=== PATIENT | male | born 1975 | race Caucasian/White ===

== ENCOUNTER 2022-09-23 21:16 | Inpatient (IN) | payer OTHER, SELFPAY ==
[~2022-09-23 21:16] MED LIST: Iopamidol-370 76% 500 ML 1 ML ONE
[2022-09-23] MEDS ORDERED: niCARdipine 25 MG/10 ML VIAL ONE ×2 (21:29→23:51)
[2022-09-23 21:50] LABS: #Basophils 0.1 thou/uL (0.0-0.2); #Lymphocytes 1.5 thou/uL (1.20-3.40); #Monocytes 0.7 thou/uL (0.11-0.59); #Neutrophils 8.3 thou/uL (1.40-6.50); %Basophils 0.6 % (0.0-1.0); %Eosinophils 0.3 % (0.0-10.0); %Lymphocytes 14.3 % (21.0-51.0); %Monocytes 6.8 % (0.0-10.0); %Neutrophils 78.1 % (42.0-75.0); Hemoglobin 14.2 g/dL (14.0-18.0); Mean Corpuscular HGB CONC 34.4 g/dL (32.0-36.0); Mean Corpuscular Hemoglobin 35.4 pg (27.0-31.0); Platelet Count 234 10x3/uL (130-400); RBC Distribution Width 13.1 % (11.5-14.5); Red Blood Cell (RBC) Count 4.02 mill/uL (4.70-6.10); White Blood Cell (WBC) Count 10.6 10x3/uL (4.8-10.8)
[2022-09-23] MEDS ORDERED: Mannitol 12.5 GM/50 ML ONE (21:57)
[2022-09-23] MEDS ORDERED: Dexamethasone 10 MG/ML VIAL ONE (21:57)
[2022-09-23 21:59] LABS: ALT (SGPT) 62 U/L (8-55); AST (SGOT) 75 U/L (5-34); Albumin 4.4 g/dL (3.5-5.0); Alkaline Phosphatase 90 U/L (40-110); Anion Gap 19 mmol/L (10-20); BUN (Urea Nitrogen) 10 mg/dL (8.9-20.6); Bilirubin, Total 0.8 mg/dL (0.2-1.2); Calc. Creatinine Clearance 0 mL/min (70-130); Calcium 9.6 mg/dL (7.8-10.44); Carbon Dioxide 30 mmol/L (22-29); Chloride 92 mmol/L (98-107); Estimated GFR 108; Globulin 3.7 g/dL (2.4-3.5); Glucose 110 mg/dL (70-105); INR-International Normal Ratio 0.9; PTT 26.9 sec (22.9-36.1); Potassium 2.7 mmol/L (3.5-5.1); Protein, Total 8.1 g/dL (6.0-8.3); Sodium 138 mmol/L (136-145)
[2022-09-23] MEDS ORDERED: manNITOL 20% 500 ML ONE (21:59)
[2022-09-23 22:10] LABS: Acetaminophen Less than 10.0 mcg/mL (10.0-30.0); Alcohol Less than 10 mg/dL (Less than 10); CK (CPK) 135 U/L (30-200); Salicylate Less than 8.0 mg/dL (15.0-30.0)
[2022-09-23] MEDS ORDERED: Multivitamins, Adult 10 ML, Thiamine HCl 100 MG, Folic Acid 1 MG in Dextrose 5 %-0.45 %... IV SCH (22:30)
[2022-09-23] MEDS ORDERED: Potassium Chloride 20 MEQ/100 ML PREMIX BAG ONE (22:56)
[2022-09-23] MEDS ORDERED: Ondansetron PF 4 MG/2 ML Vial IVP PRN (23:28)
[2022-09-23] MEDS ORDERED: Ondansetron ODT 4 MG TAB PO PRN (23:28)
[2022-09-23] MEDS ORDERED: Labetalol HCl 100 MG/20 ML VIAL SLOW IVP PRN (23:28)
[2022-09-23] MEDS ORDERED: niCARdipine 25 MG in Sodium Chloride 0.9% 250 ML 250 ML IVPB PRN (23:28)
[2022-09-23] MEDS ORDERED: Acetaminophen 325 MG TAB PO PRN (23:28)
[2022-09-23] MEDS ORDERED: Acetaminophen 650 MG Suppository PR PRN (23:28)
[2022-09-23] MEDS ORDERED: Pantoprazole 40 MG VIAL IVP SCH (23:45)
[2022-09-23 23:50] LABS: Bilirubin Negative (Negative); Blood, Urine Negative (Negative); Clarity Clear (Clear); Glucose, Urine (Dipstick) Normal (Negative); Ketone, Urine Negative (Negative); Leukocyte Negative Leu/uL (Negative); Nitrite Negative (Negative); Protein, Urine (Dipstick) Negative (Neg-Trace); Specific Gravity, Urine 1.009 (1.002-1.036); Urobilinogen Normal mg/dL (Less than 2)
[2022-09-23 23:58] LABS: Amphetamine Not Detected (NotDetected); Barbiturates Screen Not Detected (NotDetected); Benzodiazepine Screen Not Detected (NotDetected); Cocaine Metabolite Screen Not Detected (NotDetected); Methadone Not Detected (NotDetected); Methamphetamine Not Detected (NotDetected); Opiate Screen Not Detected (NotDetected); Oxycodone Screen Not Detected (NotDetected); Phencyclidine (PCP) Not Detected (NotDetected); THC/Cannabinoid Screen Not Detected (NotDetected); Tricyclic Screen Not Detected (NotDetected)
[2022-09-24 00:09] LABS: SARS-CoV-2 NAA Rapid Test Not Detected (NotDetected)
[2022-09-24] MEDS ORDERED: Electrolyte Replacement Protocol 1 EACH FS ONE (01:17)
[2022-09-24] MEDS ORDERED: Thiamine HCl 200 MG/2 ML VIAL SLOW IVP SCH (01:30)
[2022-09-24] MEDS ORDERED: Electrolyte Replacement Protocol FS PRN (01:30)
[2022-09-24] MEDS ORDERED: Labetalol HCl 100 MG/20 ML VIAL SLOW IVP PRN (01:38)
[2022-09-24 01:47] VITALS: BMI 22.8
[2022-09-24 02:32] LABS: #Lymphocytes 0.4 thou/uL (1.20-3.40); #Monocytes 0.1 thou/uL (0.11-0.59); #Neutrophils 7.6 thou/uL (1.40-6.50); Hemoglobin 14.9 g/dL (14.0-18.0); Mean Corpuscular HGB CONC 35.9 g/dL (32.0-36.0); Mean Corpuscular Hemoglobin 36.4 pg (27.0-31.0); Mean Platelet Volume 6.8 fL (7.4-10.4); Platelet Count 212 10x3/uL (130-400); RBC Distribution Width 13.2 % (11.5-14.5); Red Blood Cell (RBC) Count 4.09 mill/uL (4.70-6.10); White Blood Cell (WBC) Count 8.1 10x3/uL (4.8-10.8)
[2022-09-24 02:57] LABS: Troponin I Less than 0.010 ng/mL (< 0.028)
[2022-09-24] MEDS: Potassium Chloride 20 MEQ in Premix Bag 1 BAG IVPB SCH ×2 (03:25→06:37)
[2022-09-24 03:28] LABS: Hemoglobin A1c 4.8 % (4.0-6.0)
[2022-09-24 03:31] LABS: Anion Gap 15 mmol/L (10-20); BUN (Urea Nitrogen) 8 mg/dL (8.9-20.6); Calc. Creatinine Clearance 104 mL/min (70-130); Calcium 9.6 mg/dL (7.8-10.44); Carbon Dioxide 26 mmol/L (22-29); Chloride 95 mmol/L (98-107); Cholesterol 187 mg/dl (< 200 Desired); Estimated GFR 109; Glucose 277 mg/dL (70-105); HDL Cholesterol 93 mg/dL (>60 Neg Risk); LDL Cholesterol, Calculated 86 mg/dL; Magnesium 1.9 mg/dL (1.6-2.6); Sodium 133 mmol/L (136-145); Triglycerides 40 mg/dL (Less than 150)
[2022-09-24 03:32] LABS: Phosphorus Less than 1.0 mg/dL (2.3-4.7)
[2022-09-24] MEDS ORDERED: Potassium Phosphate 30 MMOL in Sodium Chloride 0.9% 250 ML 250 ML IVPB SCH (04:00)
[2022-09-24] MEDS: niCARdipine 25 MG in Sodium Chloride 0.9% 250 ML 250 ML IVPB PRN ×2 (04:35→18:00)
[2022-09-24] MEDS: Dexamethasone 4 MG TAB PO SCH ×3 (04:48→18:01)
[2022-09-24 06:28] LABS: Troponin I Less than 0.010 ng/mL (< 0.028)
[2022-09-24] MEDS ORDERED: Magnesium 2 GM/50 ML(in water) 2 GM in Premix Bag 1 BAG IVPB SCH (08:00)
[2022-09-24] MEDS: Pantoprazole 40 MG VIAL IVP SCH (08:59)
[2022-09-24] MEDS ORDERED: Thiamine 100 MG TAB PO SCH (09:00)
[2022-09-24] MEDS: Folic Acid 1 MG TAB PO SCH (09:02)
[2022-09-24] MEDS: ALPRAZolam 0.25 MG TAB PO PRN ×2 (09:03→16:54)
[2022-09-24] MEDS: Thiamine HCl 200 MG/2 ML VIAL SLOW IVP SCH (09:03)
[2022-09-24] MEDS ORDERED: Losartan 25 MG TAB PO SCH (14:45)
[2022-09-24 16:17] LABS: Magnesium 2.3 mg/dL (1.6-2.6); Phosphorus 3.3 mg/dL (2.3-4.7); Potassium 3.5 mmol/L (3.5-5.1)
[2022-09-24] MEDS: tiZANidine HCl 4 MG TAB PO PRN (19:54)
[2022-09-25] MEDS: Dexamethasone 4 MG TAB PO SCH ×5 (00:32→23:13)
[2022-09-25] MEDS: ALPRAZolam 0.25 MG TAB PO PRN ×2 (02:54→17:19)
[2022-09-25 04:40] LABS: #Lymphocytes 0.5 thou/uL (1.20-3.40); #Monocytes 0.3 thou/uL (0.11-0.59); %Eosinophils 0.2 % (0.0-10.0); %Lymphocytes 4.5 % (21.0-51.0); %Monocytes 2.9 % (0.0-10.0); %Neutrophils 92.4 % (42.0-75.0); Hemoglobin 13.6 g/dL (14.0-18.0); Mean Corpuscular HGB CONC 34.7 g/dL (32.0-36.0); Mean Corpuscular Hemoglobin 36.1 pg (27.0-31.0); Mean Platelet Volume 7.1 fL (7.4-10.4); Platelet Count 239 10x3/uL (130-400); RBC Distribution Width 13.2 % (11.5-14.5); Red Blood Cell (RBC) Count 3.76 mill/uL (4.70-6.10); White Blood Cell (WBC) Count 10.8 10x3/uL (4.8-10.8)
[2022-09-25 05:29] LABS: Anion Gap 13 mmol/L (10-20); BUN (Urea Nitrogen) 16 mg/dL (8.9-20.6); Calc. Creatinine Clearance 108 mL/min (70-130); Calcium 9.4 mg/dL (7.8-10.44); Carbon Dioxide 23 mmol/L (22-29); Chloride 103 mmol/L (98-107); Estimated GFR 110; Glucose 138 mg/dL (70-105); Magnesium 2.2 mg/dL (1.6-2.6); Phosphorus 4.4 mg/dL (2.3-4.7); Potassium 3.5 mmol/L (3.5-5.1); Sodium 135 mmol/L (136-145)
[2022-09-25] MEDS ORDERED: Potassium Chloride 20 MEQ TAB PO SCH (08:00)
[2022-09-25] MEDS: Pantoprazole 40 MG VIAL IVP SCH (08:34)
[2022-09-25] MEDS: Thiamine HCl 200 MG/2 ML VIAL SLOW IVP SCH (08:35)
[2022-09-25] MEDS: Folic Acid 1 MG TAB PO SCH (08:35)
[2022-09-25] MEDS ORDERED: Thiamine HCl 200 MG/2 ML VIAL SLOW IVP SCH (09:00)
[2022-09-25] MEDS ORDERED: Losartan 25 MG TAB PO SCH ×3 (09:00→21:00)
[2022-09-25] MEDS ORDERED: Calcium Carbonate 500 MG ChewTAB PO PRN (10:43)
[2022-09-25] MEDS: hydrALAZINE 20 MG/ML VIAL SLOW IVP PRN (16:45)
[2022-09-25] MEDS: tiZANidine HCl 4 MG TAB PO PRN (20:00)
[2022-09-26] MEDS: ALPRAZolam 0.25 MG TAB PO PRN ×2 (00:40→16:47)
[2022-09-26 05:13] LABS: #Lymphocytes 0.8 thou/uL (1.20-3.40); #Monocytes 0.9 thou/uL (0.11-0.59); #Neutrophils 13.2 thou/uL (1.40-6.50); %Basophils 0.1 % (0.0-1.0); %Eosinophils 0.1 % (0.0-10.0); %Monocytes 6.2 % (0.0-10.0); %Neutrophils 88.6 % (42.0-75.0); Hemoglobin 13.5 g/dL (14.0-18.0); Mean Corpuscular HGB CONC 35.1 g/dL (32.0-36.0); Mean Corpuscular Hemoglobin 36.5 pg (27.0-31.0); Mean Platelet Volume 7.2 fL (7.4-10.4); Platelet Count 219 10x3/uL (130-400); RBC Distribution Width 13.3 % (11.5-14.5); Red Blood Cell (RBC) Count 3.71 mill/uL (4.70-6.10); White Blood Cell (WBC) Count 14.9 10x3/uL (4.8-10.8)
[2022-09-26 05:38] LABS: Anion Gap 14 mmol/L (10-20); BUN (Urea Nitrogen) 20 mg/dL (8.9-20.6); Calc. Creatinine Clearance 110 mL/min (70-130); Calcium 9.2 mg/dL (7.8-10.44); Carbon Dioxide 24 mmol/L (22-29); Chloride 97 mmol/L (98-107); Estimated GFR 108; Glucose 154 mg/dL (70-105); Magnesium 2.1 mg/dL (1.6-2.6); Potassium 3.4 mmol/L (3.5-5.1); Sodium 132 mmol/L (136-145)
[2022-09-26] MEDS: Dexamethasone 4 MG TAB PO SCH ×3 (06:48→16:47)
[2022-09-26] MEDS ORDERED: Potassium Chloride 20 MEQ TAB PO SCH ×2 (08:00→13:00)
[2022-09-26] MEDS: Losartan 25 MG TAB PO SCH (09:26)
[2022-09-26] MEDS: Folic Acid 1 MG TAB PO SCH (09:26)
[2022-09-26] MEDS: Thiamine HCl 200 MG/2 ML VIAL SLOW IVP SCH (09:27)
[2022-09-26] MEDS: Pantoprazole 40 MG VIAL IVP SCH (09:27)
[2022-09-26 12:30] LABS: Potassium 3.5 mmol/L (3.5-5.1)
[2022-09-26] MEDS: tiZANidine HCl 4 MG TAB PO PRN (20:58)
[2022-09-27] MEDS: Dexamethasone 4 MG TAB PO SCH ×5 (00:33→22:28)
[2022-09-27] MEDS: ALPRAZolam 0.25 MG TAB PO PRN (02:13)
[2022-09-27 05:09] LABS: #Lymphocytes 0.7 thou/uL (1.20-3.40); #Monocytes 1.1 thou/uL (0.11-0.59); #Neutrophils 10.6 thou/uL (1.40-6.50); %Lymphocytes 5.7 % (21.0-51.0); %Monocytes 8.6 % (0.0-10.0); %Neutrophils 85.7 % (42.0-75.0); Mean Corpuscular HGB CONC 35.3 g/dL (32.0-36.0); Mean Corpuscular Hemoglobin 36.2 pg (27.0-31.0); Mean Platelet Volume 7.2 fL (7.4-10.4); Platelet Count 200 10x3/uL (130-400); Red Blood Cell (RBC) Count 3.58 mill/uL (4.70-6.10); White Blood Cell (WBC) Count 12.4 10x3/uL (4.8-10.8)
[2022-09-27 05:33] LABS: Anion Gap 13 mmol/L (10-20); BUN (Urea Nitrogen) 14 mg/dL (8.9-20.6); Calc. Creatinine Clearance 113 mL/min (70-130); Carbon Dioxide 25 mmol/L (22-29); Chloride 99 mmol/L (98-107); Estimated GFR 110; Glucose 129 mg/dL (70-105); Potassium 3.6 mmol/L (3.5-5.1); Sodium 133 mmol/L (136-145)
[2022-09-27] MEDS: Thiamine HCl 200 MG/2 ML VIAL SLOW IVP SCH (09:27)
[2022-09-27] MEDS: Losartan 25 MG TAB PO SCH (09:27)
[2022-09-27] MEDS: Folic Acid 1 MG TAB PO SCH (09:28)
[2022-09-27] MEDS: Pantoprazole 40 MG VIAL IVP SCH (09:28)
[2022-09-27] MEDS ORDERED: Potassium Chloride 20 MEQ TAB PO SCH (12:00)
[2022-09-27] MEDS: hydrALAZINE 20 MG/ML VIAL SLOW IVP PRN (15:43)
[2022-09-27] MEDS ORDERED: Famotidine 20 MG TAB PO SCH (19:45)
[2022-09-27] MEDS: tiZANidine HCl 4 MG TAB PO PRN (22:28)
[2022-09-28] MEDS: ALPRAZolam 0.25 MG TAB PO PRN (01:26)
[2022-09-28] MEDS ORDERED: Morphine 2 MG/ML VIAL SLOW IVP SCH ×2 (02:00→23:15)
[2022-09-28] MEDS: Dexamethasone 4 MG TAB PO SCH ×4 (05:15→23:45)
[2022-09-28] MEDS: Pantoprazole 40 MG VIAL IVP SCH (09:14)
[2022-09-28] MEDS: hydrALAZINE 20 MG/ML VIAL SLOW IVP PRN (09:14)
[2022-09-28] MEDS: Thiamine HCl 200 MG/2 ML VIAL SLOW IVP SCH (09:14)
[2022-09-28] MEDS: Folic Acid 1 MG TAB PO SCH (09:15)
[2022-09-28] MEDS: Losartan 25 MG TAB PO SCH (09:15)
[2022-09-28] MEDS: tiZANidine HCl 4 MG TAB PO PRN ×2 (09:28→16:51)
[2022-09-28] MEDS ORDERED: Gabapentin 300 MG CAP PO SCH ×2 (09:30→21:45)
[2022-09-28] MEDS ORDERED: Acetaminophen 500 MG TAB PO SCH (21:45)
[2022-09-29] MEDS: ALPRAZolam 0.25 MG TAB PO PRN ×3 (01:58→20:54)
[2022-09-29] MEDS: tiZANidine HCl 4 MG TAB PO PRN ×4 (01:58→20:54)
[2022-09-29] MEDS: Folic Acid 1 MG TAB PO SCH (08:23)
[2022-09-29] MEDS: Dexamethasone 4 MG TAB PO SCH ×2 (08:23→18:02)
[2022-09-29] MEDS: Gabapentin 100 MG CAP PO SCH ×3 (08:24→20:53)
[2022-09-29] MEDS: Losartan 25 MG TAB PO SCH (08:24)
[2022-09-29] MEDS: Thiamine HCl 200 MG/2 ML VIAL SLOW IVP SCH (08:25)
[2022-09-29] MEDS: Pantoprazole 40 MG VIAL IVP SCH (08:25)
[2022-09-29 16:58] VITALS: BP 109/64; TEMP 97.7
== END 2022-09-29 21:30 | disposition short-term general hospital (02) | DRG 64 ==
LOC: ERS 21:16 → CCU 22:01 → 2NO 09-25 20:14
PROVIDERS: ADMIT Student in an Organized Health Care Education/Training Program; ATTEND Internal Medicine
DX: I61.8 Other nontraumatic intracerebral hemorrhage (principal); G93.6 Cerebral edema; G81.94 Hemiplegia, unspecified affecting left nondominant side; I16.1 Hypertensive emergency; Z20.822 Contact with and (suspected) exposure to COVID-19; I10 Essential (primary) hypertension; F32.A Depression, unspecified; E87.6 Hypokalemia; R29.810 Facial weakness; R29.710 NIHSS score 10; Z91.14 Patient's other noncompliance with medication regimen; Z79.899 Other long term (current) drug therapy
CPT/HCPCS: 36415; 36416; 70450; 70496; 71045; 74230; 80048; 80053; 80061; 80306; 80307; 81003; 82550; 83036; 83605; 83735; 84100; 84443; 84484; 85025; 85610; 85730; 93005; 93306; 96365; 96366; 96368; 96375; C9113; J0360; J1100; J2150; J2272; J3411; J3475; J3480; J7042; J7050; J7799; J8540; Q9967; U0002

== ENCOUNTER 2022-10-05 20:39 | Inpatient (IN) | payer OTHER ==
[2022-10-05 21:03] LABS: #Eosinphils 0.2 thou/uL (0.0-0.7); #Lymphocytes 1.5 thou/uL (1.20-3.40); #Monocytes 1.6 thou/uL (0.11-0.59); #Neutrophils 11.7 thou/uL (1.40-6.50); %Basophils 0.3 % (0.0-1.0); %Eosinophils 1.5 % (0.0-10.0); %Monocytes 10.4 % (0.0-10.0); %Neutrophils 77.8 % (42.0-75.0); Hemoglobin 14.3 g/dL (14.0-18.0); Mean Corpuscular HGB CONC 35.4 g/dL (32.0-36.0); Mean Corpuscular Hemoglobin 36.6 pg (27.0-31.0); Mean Platelet Volume 5.5 fL (7.4-10.4); Platelet Count 530 10x3/uL (130-400); RBC Distribution Width 13.6 % (11.5-14.5)
[2022-10-05] MEDS ORDERED: Morphine 4 MG/ML VIAL ONE (21:17)
[2022-10-05] MEDS ORDERED: Ondansetron PF 4 MG/2 ML Vial ONE (21:17)
[2022-10-05 21:26] LABS: ALT (SGPT) 86 U/L (8-55); AST (SGOT) 51 U/L (5-34); Albumin 3.3 g/dL (3.5-5.0); Alkaline Phosphatase 309 U/L (40-110); Anion Gap 14 mmol/L (10-20); BUN (Urea Nitrogen) 17 mg/dL (8.9-20.6); Bilirubin, Total 0.8 mg/dL (0.2-1.2); Calc. Creatinine Clearance 0 mL/min (70-130); Carbon Dioxide 20 mmol/L (22-29); Chloride 98 mmol/L (98-107); Estimated GFR 114; Globulin 4.3 g/dL (2.4-3.5); Glucose 91 mg/dL (70-105); Lipase 11 U/L (8-78); Potassium 4.9 mmol/L (3.5-5.1); Protein, Total 7.6 g/dL (6.0-8.3); Sodium 127 mmol/L (136-145)
[2022-10-05] MEDS ORDERED: metroNIDAZOLE 500 MG/100 ML BAG ONE (22:11)
[2022-10-05 23:42] VITALS: BMI 23.1
[2022-10-05] MEDS ORDERED: Sodium Chloride 0.9% 1,000 ML IV SCH (23:45)
[2022-10-05] MEDS ORDERED: Ondansetron ODT 4 MG TAB SL PRN (23:45)
[2022-10-05] MEDS ORDERED: Ondansetron PF 4 MG/2 ML Vial IVP PRN (23:45)
[2022-10-05] MEDS ORDERED: Morphine 2 MG/ML VIAL SLOW IVP PRN (23:55)
[2022-10-06] MEDS: Zolpidem Tartrate 5 MG TAB PO PRN ×2 (01:02→22:11)
[2022-10-06] MEDS: metroNIDAZOLE 500 MG in Premix Bag 1 BAG IVPB SCH ×2 (05:16→13:58)
[2022-10-06] MEDS: Acetaminophen 325 MG TAB PO PRN ×3 (05:17→21:01)
[2022-10-06 05:27] LABS: #Eosinphils 0.2 thou/uL (0.0-0.7); #Lymphocytes 1.7 thou/uL (1.20-3.40); #Monocytes 1.3 thou/uL (0.11-0.59); #Neutrophils 7.9 thou/uL (1.40-6.50); %Basophils 0.4 % (0.0-1.0); %Eosinophils 1.9 % (0.0-10.0); %Lymphocytes 15.1 % (21.0-51.0); %Monocytes 11.7 % (0.0-10.0); %Neutrophils 70.9 % (42.0-75.0); Hemoglobin 13.1 g/dL (14.0-18.0); Mean Corpuscular HGB CONC 34.7 g/dL (32.0-36.0); Mean Corpuscular Hemoglobin 36.6 pg (27.0-31.0); Mean Platelet Volume 5.7 fL (7.4-10.4); Platelet Count 511 10x3/uL (130-400); RBC Distribution Width 13.5 % (11.5-14.5); Red Blood Cell (RBC) Count 3.59 mill/uL (4.70-6.10); White Blood Cell (WBC) Count 11.2 10x3/uL (4.8-10.8)
[2022-10-06 05:47] LABS: ALT (SGPT) 70 U/L (8-55); AST (SGOT) 32 U/L (5-34); Albumin 3.1 g/dL (3.5-5.0); Alkaline Phosphatase 266 U/L (40-110); Anion Gap 14 mmol/L (10-20); BUN (Urea Nitrogen) 15 mg/dL (8.9-20.6); Bilirubin, Total 0.9 mg/dL (0.2-1.2); Calc. Creatinine Clearance 117 mL/min (70-130); Calcium 8.9 mg/dL (7.8-10.44); Carbon Dioxide 23 mmol/L (22-29); Chloride 98 mmol/L (98-107); Estimated GFR 112; Globulin 3.9 g/dL (2.4-3.5); Glucose 90 mg/dL (70-105); Potassium 4.3 mmol/L (3.5-5.1); Sodium 131 mmol/L (136-145)
[2022-10-06] MEDS: Multivitamin W/ Minerals 1 TAB PO SCH (08:02)
[2022-10-06] MEDS: Escitalopram Oxalate 10 mg Tablet PO SCH (08:02)
[2022-10-06] MEDS: Thiamine 100 MG TAB PO SCH (08:02)
[2022-10-06] MEDS: Losartan 25 MG TAB PO SCH (08:03)
[2022-10-06] MEDS: Gabapentin 100 MG CAP PO SCH ×3 (08:03→21:02)
[2022-10-06] MEDS: Folic Acid 1 MG TAB PO SCH (08:03)
[2022-10-06] MEDS: hydrOXYzine 25 MG TAB PO PRN ×2 (11:09→21:02)
[2022-10-06] MEDS ORDERED: Iopamidol-370 76% 500 ML 1 ML ONE (13:57)
[2022-10-06 14:19] LABS: Hemoglobin 13.4 g/dL (14.0-18.0); Mean Corpuscular HGB CONC 34.4 g/dL (32.0-36.0); Mean Corpuscular Hemoglobin 35.4 pg (27.0-31.0); Mean Platelet Volume 5.7 fL (7.4-10.4); Platelet Count 455 10x3/uL (130-400); RBC Distribution Width 13.6 % (11.5-14.5); Red Blood Cell (RBC) Count 3.79 mill/uL (4.70-6.10)
[2022-10-06 14:46] LABS: Band 50 % (5-11); Lymphocytes 2 % (21-51); MDiff Complete? YES; Macrocytosis SLIGHT = 6-15 cells (100X) (0-5/hpf); Metamyelocyte 2 % (0-0); Monocytes 1 % (0-10); Neutrophil 45 % (42-75); Platelet Morphology Comment Appears Increased; Polychromasia SLIGHT = 2-3 cells (100X) (0-2/hpf); Toxic Granulation SLIGHT; Vacuoles SLIGHT
[2022-10-06] MEDS ORDERED: Meropenem 1 GM in Sodium Chloride 0.9% 100 ML IVPB SCH ×2 (14:47→15:15)
[2022-10-06] MEDS ORDERED: VANCOMYCIN 1.25 GM/250 ML BAG IVPB SCH (14:48)
[2022-10-06] MEDS ORDERED: VANCOMYCIN 1.75 GM/500 ML BAG 1.75 GM in Premix Bag 1 BAG IVPB SCH (18:00)
[2022-10-06 20:54] LABS: INR-International Normal Ratio 1.1; PTT 30.6 sec (22.9-36.1); Prothrombin Time 15.1 sec (12.0-14.7)
[2022-10-06] MEDS: Meropenem 1 GM in Sodium Chloride 0.9% 100 ML IVPB SCH (21:12)
[2022-10-07] MEDS: Acetaminophen 325 MG TAB PO PRN ×5 (03:58→22:29)
[2022-10-07] MEDS: Meropenem 1 GM in Sodium Chloride 0.9% 100 ML IVPB SCH ×3 (05:51→22:29)
[2022-10-07] MEDS: VANCOMYCIN 1.25 GM/250 ML BAG 1.25 GM in Premix Bag 1 BAG IVPB SCH ×2 (05:51→18:08)
[2022-10-07 06:11] LABS: ALT (SGPT) 71 U/L (8-55); AST (SGOT) 47 U/L (5-34); Albumin 3.1 g/dL (3.5-5.0); Alkaline Phosphatase 339 U/L (40-110); Anion Gap 15 mmol/L (10-20); BUN (Urea Nitrogen) 17 mg/dL (8.9-20.6); Bilirubin, Total 0.8 mg/dL (0.2-1.2); Calc. Creatinine Clearance 112 mL/min (70-130); Carbon Dioxide 19 mmol/L (22-29); Chloride 101 mmol/L (98-107); Estimated GFR 111; Glucose 95 mg/dL (70-105); Potassium 4.2 mmol/L (3.5-5.1); Protein, Total 7.1 g/dL (6.0-8.3); Sodium 131 mmol/L (136-145)
[2022-10-07 06:43] LABS: Band 3 % (5-11); Hemoglobin 13.4 g/dL (14.0-18.0); Lymphocytes 3 % (21-51); MDiff Complete? YES; Mean Corpuscular HGB CONC 34.2 g/dL (32.0-36.0); Mean Corpuscular Hemoglobin 35.4 pg (27.0-31.0); Mean Platelet Volume 5.7 fL (7.4-10.4); Metamyelocyte 1 % (0-0); Monocytes 3 % (0-10); Neutrophil 90 % (42-75); Platelet Count 415 10x3/uL (130-400); Platelet Morphology Comment Appears Increased; Polychromasia SLIGHT = 2-3 cells (100X) (0-2/hpf); RBC Distribution Width 13.7 % (11.5-14.5); Red Blood Cell (RBC) Count 3.79 mill/uL (4.70-6.10); White Blood Cell (WBC) Count 18.9 10x3/uL (4.8-10.8)
[2022-10-07] MEDS: Escitalopram Oxalate 10 mg Tablet PO SCH (08:12)
[2022-10-07] MEDS: Folic Acid 1 MG TAB PO SCH (08:12)
[2022-10-07] MEDS: Gabapentin 100 MG CAP PO SCH ×3 (08:12→19:51)
[2022-10-07] MEDS: Multivitamin W/ Minerals 1 TAB PO SCH (08:12)
[2022-10-07] MEDS: Thiamine 100 MG TAB PO SCH (08:12)
[2022-10-07] MEDS: Losartan 25 MG TAB PO SCH (08:12)
[2022-10-07] MEDS ORDERED: Lidocaine 1% PF 5 ML VIAL ONE (09:26)
[2022-10-07] MEDS ORDERED: Sodium Bicarbonate 2.5 MEQ/5 ML VIAL ONE (09:26)
[2022-10-07] MEDS: hydrOXYzine 25 MG TAB PO PRN (18:28)
[2022-10-07 18:38] LABS: #Eosinphils 0.1 thou/uL (0.0-0.7); #Monocytes 1.4 thou/uL (0.11-0.59); #Neutrophils 13.4 thou/uL (1.40-6.50); %Basophils 0.3 % (0.0-1.0); %Eosinophils 0.6 % (0.0-10.0); %Lymphocytes 6.1 % (21.0-51.0); %Monocytes 8.9 % (0.0-10.0); %Neutrophils 84.2 % (42.0-75.0); Hemoglobin 13.9 g/dL (14.0-18.0); Mean Corpuscular HGB CONC 34.8 g/dL (32.0-36.0); Mean Corpuscular Hemoglobin 36.6 pg (27.0-31.0); Mean Platelet Volume 5.7 fL (7.4-10.4); Platelet Count 445 10x3/uL (130-400); RBC Distribution Width 13.7 % (11.5-14.5); Red Blood Cell (RBC) Count 3.79 mill/uL (4.70-6.10); White Blood Cell (WBC) Count 15.9 10x3/uL (4.8-10.8)
[2022-10-07 18:52] LABS: Anion Gap 18 mmol/L (10-20); BUN (Urea Nitrogen) 18 mg/dL (8.9-20.6); Calc. Creatinine Clearance 127 mL/min (70-130); Carbon Dioxide 17 mmol/L (22-29); Chloride 101 mmol/L (98-107); Estimated GFR 115; Glucose 86 mg/dL (70-105); Potassium 4.4 mmol/L (3.5-5.1); Sodium 132 mmol/L (136-145)
[2022-10-07] MEDS: Zolpidem Tartrate 5 MG TAB PO PRN (19:52)
[2022-10-08] MEDS: hydrOXYzine 25 MG TAB PO PRN (01:50)
[2022-10-08] MEDS: Acetaminophen 325 MG TAB PO PRN ×3 (04:07→20:22)
[2022-10-08 05:26] LABS: #Eosinphils 0.2 thou/uL (0.0-0.7); #Lymphocytes 1.6 thou/uL (1.20-3.40); #Monocytes 1.6 thou/uL (0.11-0.59); #Neutrophils 11.1 thou/uL (1.40-6.50); %Basophils 0.3 % (0.0-1.0); %Eosinophils 1.2 % (0.0-10.0); %Lymphocytes 10.8 % (21.0-51.0); %Monocytes 11.1 % (0.0-10.0); %Neutrophils 76.6 % (42.0-75.0); Hemoglobin 12.8 g/dL (14.0-18.0); Mean Corpuscular HGB CONC 33.9 g/dL (32.0-36.0); Mean Corpuscular Hemoglobin 35.2 pg (27.0-31.0); Mean Platelet Volume 5.7 fL (7.4-10.4); Platelet Count 410 10x3/uL (130-400); RBC Distribution Width 13.8 % (11.5-14.5); Red Blood Cell (RBC) Count 3.63 mill/uL (4.70-6.10); White Blood Cell (WBC) Count 14.5 10x3/uL (4.8-10.8)
[2022-10-08 05:43] LABS: Vancomycin, Trough 11.4 ug/mL
[2022-10-08 05:47] LABS: ALT (SGPT) 51 U/L (8-55); AST (SGOT) 27 U/L (5-34); Alkaline Phosphatase 283 U/L (40-110); Anion Gap 18 mmol/L (10-20); BUN (Urea Nitrogen) 17 mg/dL (8.9-20.6); Bilirubin, Total 0.6 mg/dL (0.2-1.2); Calc. Creatinine Clearance 127 mL/min (70-130); Calcium 8.6 mg/dL (7.8-10.44); Carbon Dioxide 16 mmol/L (22-29); Chloride 101 mmol/L (98-107); Estimated GFR 115; Globulin 3.9 g/dL (2.4-3.5); Glucose 90 mg/dL (70-105); Protein, Total 6.9 g/dL (6.0-8.3); Sodium 131 mmol/L (136-145)
[2022-10-08] MEDS: Vancomycin 1 GM in Premix Bag 1 BAG IVPB SCH ×3 (06:23→22:43)
[2022-10-08] MEDS: Meropenem 1 GM in Sodium Chloride 0.9% 100 ML IVPB SCH ×3 (06:23→22:43)
[2022-10-08] MEDS: Thiamine 100 MG TAB PO SCH (08:24)
[2022-10-08] MEDS: Escitalopram Oxalate 10 mg Tablet PO SCH (08:24)
[2022-10-08] MEDS: Folic Acid 1 MG TAB PO SCH (08:24)
[2022-10-08] MEDS: Gabapentin 100 MG CAP PO SCH ×3 (08:24→20:23)
[2022-10-08] MEDS: Losartan 25 MG TAB PO SCH (08:24)
[2022-10-08] MEDS: Multivitamin W/ Minerals 1 TAB PO SCH (08:25)
[2022-10-08] MEDS: HYDROcodone/Acetaminophen 5/325 mg Tablet PO PRN ×4 (10:43→23:11)
[2022-10-08] MEDS ORDERED: Morphine 2 MG/ML VIAL SLOW IVP SCH (10:45)
[2022-10-08] MEDS: Zolpidem Tartrate 5 MG TAB PO PRN (20:23)
[2022-10-08] MEDS: Famotidine 20 MG TAB PO SCH (22:58)
[2022-10-09] MEDS: Acetaminophen 325 MG TAB PO PRN (00:16)
[2022-10-09] MEDS: hydrOXYzine 25 MG TAB PO PRN (03:16)
[2022-10-09] MEDS: HYDROcodone/Acetaminophen 5/325 mg Tablet PO PRN ×5 (04:05→21:53)
[2022-10-09] MEDS: Meropenem 1 GM in Sodium Chloride 0.9% 100 ML IVPB SCH ×3 (05:14→21:53)
[2022-10-09] MEDS: Vancomycin 1 GM in Premix Bag 1 BAG IVPB SCH (05:15)
[2022-10-09 05:48] LABS: Vancomycin, Trough 20.5 ug/mL
[2022-10-09] MEDS: Vancomycin HCl 750 MG in Sodium Chloride 0.9% 250 ML 250 ML IVPB SCH ×2 (06:40→14:26)
[2022-10-09] MEDS: Escitalopram Oxalate 10 mg Tablet PO SCH (08:48)
[2022-10-09] MEDS: Famotidine 20 MG TAB PO SCH ×2 (08:48→21:52)
[2022-10-09] MEDS: Folic Acid 1 MG TAB PO SCH (08:48)
[2022-10-09] MEDS: Gabapentin 100 MG CAP PO SCH ×3 (08:48→21:52)
[2022-10-09] MEDS: Thiamine 100 MG TAB PO SCH (08:49)
[2022-10-09] MEDS: Losartan 25 MG TAB PO SCH (08:49)
[2022-10-09] MEDS: Multivitamin W/ Minerals 1 TAB PO SCH (08:49)
[2022-10-09 09:45] LABS: #Basophils 0.1 thou/uL (0.0-0.2); #Eosinphils 0.2 thou/uL (0.0-0.7); #Lymphocytes 1.5 thou/uL (1.20-3.40); #Monocytes 0.9 thou/uL (0.11-0.59); #Neutrophils 11.1 thou/uL (1.40-6.50); %Basophils 0.4 % (0.0-1.0); %Eosinophils 1.2 % (0.0-10.0); %Lymphocytes 10.9 % (21.0-51.0); %Monocytes 6.2 % (0.0-10.0); %Neutrophils 81.2 % (42.0-75.0); Hemoglobin 13.2 g/dL (14.0-18.0); Mean Corpuscular HGB CONC 33.1 g/dL (32.0-36.0); Mean Corpuscular Hemoglobin 34.6 pg (27.0-31.0); Mean Platelet Volume 5.6 fL (7.4-10.4); Platelet Count 454 10x3/uL (130-400); RBC Distribution Width 13.6 % (11.5-14.5); White Blood Cell (WBC) Count 13.6 10x3/uL (4.8-10.8)
[2022-10-09] MEDS ORDERED: Ketoconazole 2% Cream 15 gm Tube TOP SCH (14:45)
[2022-10-09] MEDS: Nystatin 500,000 UNITS/5 ML UDCUP SSW SCH ×2 (16:46→21:53)
[2022-10-09] MEDS ORDERED: Nystatin 500,000 UNITS/5 ML UDCUP SSW SCH (17:00)
[2022-10-09] MEDS: Zolpidem Tartrate 5 MG TAB PO PRN (23:23)
[2022-10-10] MEDS: hydrOXYzine 25 MG TAB PO PRN ×2 (03:03→22:49)
[2022-10-10] MEDS: HYDROcodone/Acetaminophen 5/325 mg Tablet PO PRN ×2 (05:02→19:37)
[2022-10-10 05:16] LABS: #Eosinphils 0.1 thou/uL (0.0-0.7); #Lymphocytes 1.7 thou/uL (1.20-3.40); #Monocytes 0.9 thou/uL (0.11-0.59); #Neutrophils 11.6 thou/uL (1.40-6.50); %Basophils 0.3 % (0.0-1.0); %Eosinophils 0.7 % (0.0-10.0); %Monocytes 6.2 % (0.0-10.0); %Neutrophils 80.8 % (42.0-75.0); Hemoglobin 13.1 g/dL (14.0-18.0); Mean Corpuscular HGB CONC 33.4 g/dL (32.0-36.0); Mean Corpuscular Hemoglobin 34.5 pg (27.0-31.0); Mean Platelet Volume 5.9 fL (7.4-10.4); Platelet Count 435 10x3/uL (130-400); RBC Distribution Width 13.5 % (11.5-14.5); White Blood Cell (WBC) Count 14.4 10x3/uL (4.8-10.8)
[2022-10-10 05:40] LABS: Anion Gap 15 mmol/L (10-20); BUN (Urea Nitrogen) 12 mg/dL (8.9-20.6); Calc. Creatinine Clearance 132 mL/min (70-130); Calcium 8.7 mg/dL (7.8-10.44); Carbon Dioxide 20 mmol/L (22-29); Chloride 102 mmol/L (98-107); Estimated GFR 116; Glucose 90 mg/dL (70-105); Sodium 133 mmol/L (136-145)
[2022-10-10 05:59] LABS: Hep C IgG Ab Non-Reactive (NonReactive); Hep C Index 0.11 S/CO (0-0.79)
[2022-10-10] MEDS: Losartan 25 MG TAB PO SCH (08:32)
[2022-10-10] MEDS: Gabapentin 100 MG CAP PO SCH ×3 (08:33→22:05)
[2022-10-10] MEDS: Folic Acid 1 MG TAB PO SCH (08:33)
[2022-10-10] MEDS: Famotidine 20 MG TAB PO SCH ×2 (08:34→20:00)
[2022-10-10] MEDS: Nystatin 500,000 UNITS/5 ML UDCUP SSW SCH ×4 (08:34→22:05)
[2022-10-10] MEDS: Thiamine 100 MG TAB PO SCH (08:35)
[2022-10-10] MEDS: Escitalopram Oxalate 10 mg Tablet PO SCH (08:35)
[2022-10-10] MEDS: Ketoconazole 2% Cream 15 gm Tube TOP SCH (08:35)
[2022-10-10] MEDS: Multivitamin W/ Minerals 1 TAB PO SCH (08:35)
[2022-10-10] MEDS ORDERED: Losartan 25 MG TAB PO SCH (09:00)
[2022-10-10] MEDS ORDERED: Iopamidol 370 76% 100 ML VIAL ONE (09:14)
[2022-10-10] MEDS: Meropenem 1 GM in Sodium Chloride 0.9% 100 ML IVPB SCH ×2 (11:23→22:06)
[2022-10-10] MEDS ORDERED: Famotidine 20 MG TAB PO PRN (19:20)
[2022-10-10] MEDS: Zolpidem Tartrate 5 MG TAB PO PRN (22:04)
[2022-10-11] MEDS: Meropenem 1 GM in Sodium Chloride 0.9% 100 ML IVPB SCH (03:28)
[2022-10-11] MEDS: HYDROcodone/Acetaminophen 5/325 mg Tablet PO PRN ×4 (03:28→20:14)
[2022-10-11 05:36] LABS: #Eosinphils 0.2 thou/uL (0.0-0.7); #Lymphocytes 1.9 thou/uL (1.20-3.40); #Monocytes 0.8 thou/uL (0.11-0.59); #Neutrophils 8.2 thou/uL (1.40-6.50); %Basophils 0.4 % (0.0-1.0); %Eosinophils 1.5 % (0.0-10.0); %Monocytes 7.2 % (0.0-10.0); %Neutrophils 73.9 % (42.0-75.0); Hemoglobin 13.5 g/dL (14.0-18.0); Mean Corpuscular HGB CONC 34.5 g/dL (32.0-36.0); Mean Corpuscular Hemoglobin 35.8 pg (27.0-31.0); Mean Platelet Volume 5.7 fL (7.4-10.4); Platelet Count 440 10x3/uL (130-400); RBC Distribution Width 13.4 % (11.5-14.5); Red Blood Cell (RBC) Count 3.76 mill/uL (4.70-6.10); White Blood Cell (WBC) Count 11.2 10x3/uL (4.8-10.8)
[2022-10-11 06:06] LABS: ALT (SGPT) 23 U/L (8-55); AST (SGOT) 19 U/L (5-34); Albumin 2.8 g/dL (3.5-5.0); Alkaline Phosphatase 172 U/L (40-110); Anion Gap 17 mmol/L (10-20); BUN (Urea Nitrogen) 12 mg/dL (8.9-20.6); Bilirubin, Total 0.6 mg/dL (0.2-1.2); Calc. Creatinine Clearance 125 mL/min (70-130); Carbon Dioxide 19 mmol/L (22-29); Chloride 101 mmol/L (98-107); Estimated GFR 114; Glucose 89 mg/dL (70-105); Potassium 4.1 mmol/L (3.5-5.1); Protein, Total 6.8 g/dL (6.0-8.3); Sodium 133 mmol/L (136-145)
[2022-10-11 06:16] LABS: HIV (1/2) Antibody/Antigen Non-Reactive (NonReactive); HIV 1/2 INDEX 0.22 S/CO (<1.00)
[2022-10-11] MEDS: Ketoconazole 2% Cream 15 gm Tube TOP SCH (09:08)
[2022-10-11] MEDS: Multivitamin W/ Minerals 1 TAB PO SCH (09:09)
[2022-10-11] MEDS: Gabapentin 100 MG CAP PO SCH ×3 (09:09→20:13)
[2022-10-11] MEDS: Losartan 25 MG TAB PO SCH (09:09)
[2022-10-11] MEDS: Nystatin 500,000 UNITS/5 ML UDCUP SSW SCH ×4 (09:09→20:12)
[2022-10-11] MEDS: Famotidine 20 MG TAB PO SCH ×2 (09:09→20:16)
[2022-10-11] MEDS: Escitalopram Oxalate 10 mg Tablet PO SCH (09:09)
[2022-10-11] MEDS: Folic Acid 1 MG TAB PO SCH (09:09)
[2022-10-11] MEDS: Thiamine 100 MG TAB PO SCH (09:10)
[2022-10-11] MEDS: metroNIDAZOLE 500 MG TAB PO SCH ×2 (15:54→20:14)
[2022-10-11] MEDS: Ciprofloxacin 500 MG TAB PO SCH (20:13)
[2022-10-11] MEDS: diphenhydrAMINE 30 GM TUBE TOP PRN (21:27)
[2022-10-11] MEDS: Zolpidem Tartrate 5 MG TAB PO PRN (23:04)
[2022-10-12] MEDS: HYDROcodone/Acetaminophen 5/325 mg Tablet PO PRN ×4 (01:35→20:21)
[2022-10-12 05:35] LABS: #Eosinphils 0.2 thou/uL (0.0-0.7); #Lymphocytes 1.9 thou/uL (1.20-3.40); #Monocytes 0.8 thou/uL (0.11-0.59); #Neutrophils 8.2 thou/uL (1.40-6.50); %Basophils 0.4 % (0.0-1.0); %Eosinophils 1.5 % (0.0-10.0); %Lymphocytes 17.3 % (21.0-51.0); %Monocytes 6.9 % (0.0-10.0); Hemoglobin 13.4 g/dL (14.0-18.0); Mean Corpuscular HGB CONC 33.9 g/dL (32.0-36.0); Mean Corpuscular Hemoglobin 35.1 pg (27.0-31.0); Mean Platelet Volume 5.8 fL (7.4-10.4); Platelet Count 446 10x3/uL (130-400); RBC Distribution Width 13.6 % (11.5-14.5); Red Blood Cell (RBC) Count 3.81 mill/uL (4.70-6.10); White Blood Cell (WBC) Count 11.1 10x3/uL (4.8-10.8)
[2022-10-12 05:57] LABS: ALT (SGPT) 22 U/L (8-55); AST (SGOT) 17 U/L (5-34); Albumin 3.1 g/dL (3.5-5.0); Alkaline Phosphatase 162 U/L (40-110); Anion Gap 16 mmol/L (10-20); BUN (Urea Nitrogen) 15 mg/dL (8.9-20.6); Bilirubin, Total 0.5 mg/dL (0.2-1.2); Calc. Creatinine Clearance 122 mL/min (70-130); Carbon Dioxide 22 mmol/L (22-29); Chloride 99 mmol/L (98-107); Estimated GFR 113; Glucose 93 mg/dL (70-105); Protein, Total 7.1 g/dL (6.0-8.3); Sodium 133 mmol/L (136-145)
[2022-10-12] MEDS: Ciprofloxacin 500 MG TAB PO SCH ×2 (06:05→20:21)
[2022-10-12] MEDS: Thiamine 100 MG TAB PO SCH (08:15)
[2022-10-12] MEDS: Gabapentin 100 MG CAP PO SCH ×3 (08:15→20:18)
[2022-10-12] MEDS: Escitalopram Oxalate 10 mg Tablet PO SCH (08:16)
[2022-10-12] MEDS: Multivitamin W/ Minerals 1 TAB PO SCH (08:16)
[2022-10-12] MEDS: Losartan 25 MG TAB PO SCH (08:16)
[2022-10-12] MEDS: Nystatin 500,000 UNITS/5 ML UDCUP SSW SCH ×4 (08:16→20:55)
[2022-10-12] MEDS: metroNIDAZOLE 500 MG TAB PO SCH ×3 (08:16→20:21)
[2022-10-12] MEDS: Folic Acid 1 MG TAB PO SCH (08:16)
[2022-10-12] MEDS: Ketoconazole 2% Cream 15 gm Tube TOP SCH (08:16)
[2022-10-12] MEDS: Famotidine 20 MG TAB PO SCH ×2 (08:22→20:20)
[2022-10-12] MEDS: Saccharomyces boulardii 250 MG CAP PO SCH (08:49)
[2022-10-12] MEDS: Zolpidem Tartrate 5 MG TAB PO PRN (22:44)
[2022-10-12] MEDS: diphenhydrAMINE 30 GM TUBE TOP PRN (22:45)
[2022-10-13 05:43] LABS: #Basophils 0.1 thou/uL (0.0-0.2); #Eosinphils 0.2 thou/uL (0.0-0.7); #Lymphocytes 1.1 thou/uL (1.20-3.40); #Monocytes 0.6 thou/uL (0.11-0.59); #Neutrophils 8.9 thou/uL (1.40-6.50); %Basophils 0.5 % (0.0-1.0); %Eosinophils 1.4 % (0.0-10.0); %Lymphocytes 10.2 % (21.0-51.0); %Monocytes 5.9 % (0.0-10.0); %Neutrophils 81.9 % (42.0-75.0); Hemoglobin 13.6 g/dL (14.0-18.0); Mean Corpuscular HGB CONC 34.7 g/dL (32.0-36.0); Mean Corpuscular Hemoglobin 35.6 pg (27.0-31.0); Mean Platelet Volume 5.8 fL (7.4-10.4); Platelet Count 446 10x3/uL (130-400); RBC Distribution Width 13.6 % (11.5-14.5); Red Blood Cell (RBC) Count 3.81 mill/uL (4.70-6.10); White Blood Cell (WBC) Count 10.8 10x3/uL (4.8-10.8)
[2022-10-13 05:58] LABS: Anion Gap 14 mmol/L (10-20); BUN (Urea Nitrogen) 16 mg/dL (8.9-20.6); Calc. Creatinine Clearance 108 mL/min (70-130); Calcium 9.1 mg/dL (7.8-10.44); Carbon Dioxide 26 mmol/L (22-29); Chloride 98 mmol/L (98-107); Estimated GFR 109; Glucose 125 mg/dL (70-105); Potassium 3.9 mmol/L (3.5-5.1); Sodium 134 mmol/L (136-145)
[2022-10-13] MEDS: Ciprofloxacin 500 MG TAB PO SCH ×2 (06:03→20:20)
[2022-10-13] MEDS: HYDROcodone/Acetaminophen 5/325 mg Tablet PO PRN ×3 (06:36→19:14)
[2022-10-13] MEDS: Multivitamin W/ Minerals 1 TAB PO SCH (08:54)
[2022-10-13] MEDS: Losartan 25 MG TAB PO SCH (08:55)
[2022-10-13] MEDS: Ketoconazole 2% Cream 15 gm Tube TOP SCH (08:55)
[2022-10-13] MEDS: metroNIDAZOLE 500 MG TAB PO SCH ×3 (08:55→20:20)
[2022-10-13] MEDS: Escitalopram Oxalate 10 mg Tablet PO SCH (08:55)
[2022-10-13] MEDS: Gabapentin 100 MG CAP PO SCH ×3 (08:55→20:20)
[2022-10-13] MEDS: Folic Acid 1 MG TAB PO SCH (08:55)
[2022-10-13] MEDS: Saccharomyces boulardii 250 MG CAP PO SCH (08:56)
[2022-10-13] MEDS: Nystatin 500,000 UNITS/5 ML UDCUP SSW SCH ×4 (08:56→20:32)
[2022-10-13] MEDS: Thiamine 100 MG TAB PO SCH (08:56)
[2022-10-13] MEDS: Famotidine 20 MG TAB PO SCH ×2 (08:56→20:21)
[2022-10-13] MEDS: hydrOXYzine 25 MG TAB PO PRN (10:34)
[2022-10-13] MEDS ORDERED: Bisacodyl 10 MG SUPP PR SCH (10:39)
[2022-10-13] MEDS ORDERED: Morphine 2 MG/ML VIAL SLOW IVP SCH (21:45)
[2022-10-13] MEDS ORDERED: HYDROcodone/Acetaminophen 5/325 mg Tablet PO SCH (22:15)
[2022-10-14] MEDS: Zolpidem Tartrate 5 MG TAB PO PRN ×2 (00:17→22:50)
[2022-10-14] MEDS: Ciprofloxacin 500 MG TAB PO SCH ×2 (05:52→20:04)
[2022-10-14 06:11] LABS: #Basophils 0.1 thou/uL (0.0-0.2); #Eosinphils 0.2 thou/uL (0.0-0.7); #Lymphocytes 1.7 thou/uL (1.20-3.40); #Neutrophils 8.6 thou/uL (1.40-6.50); %Basophils 0.5 % (0.0-1.0); %Eosinophils 2.1 % (0.0-10.0); %Lymphocytes 14.7 % (21.0-51.0); %Monocytes 8.8 % (0.0-10.0); %Neutrophils 73.8 % (42.0-75.0); Hemoglobin 13.4 g/dL (14.0-18.0); Mean Corpuscular HGB CONC 33.5 g/dL (32.0-36.0); Mean Platelet Volume 5.8 fL (7.4-10.4); Platelet Count 534 10x3/uL (130-400); RBC Distribution Width 13.7 % (11.5-14.5); Red Blood Cell (RBC) Count 3.83 mill/uL (4.70-6.10); White Blood Cell (WBC) Count 11.6 10x3/uL (4.8-10.8)
[2022-10-14 06:46] LABS: Anion Gap 16 mmol/L (10-20); BUN (Urea Nitrogen) 19 mg/dL (8.9-20.6); Calc. Creatinine Clearance 107 mL/min (70-130); Carbon Dioxide 23 mmol/L (22-29); Chloride 100 mmol/L (98-107); Estimated GFR 109; Glucose 102 mg/dL (70-105); Potassium 4.3 mmol/L (3.5-5.1); Sodium 135 mmol/L (136-145)
[2022-10-14] MEDS: Escitalopram Oxalate 10 mg Tablet PO SCH (08:07)
[2022-10-14] MEDS: Saccharomyces boulardii 250 MG CAP PO SCH (08:07)
[2022-10-14] MEDS: Nystatin 500,000 UNITS/5 ML UDCUP SSW SCH ×4 (08:07→20:04)
[2022-10-14] MEDS: Folic Acid 1 MG TAB PO SCH (08:07)
[2022-10-14] MEDS: Losartan 25 MG TAB PO SCH (08:07)
[2022-10-14] MEDS: Thiamine 100 MG TAB PO SCH (08:07)
[2022-10-14] MEDS: Multivitamin W/ Minerals 1 TAB PO SCH (08:07)
[2022-10-14] MEDS: metroNIDAZOLE 500 MG TAB PO SCH ×3 (08:08→20:04)
[2022-10-14] MEDS: Gabapentin 100 MG CAP PO SCH ×3 (08:08→20:04)
[2022-10-14] MEDS: HYDROcodone/Acetaminophen 5/325 mg Tablet PO PRN ×3 (08:10→18:17)
[2022-10-14] MEDS: Famotidine 20 MG TAB PO SCH ×2 (08:11→20:06)
[2022-10-14] MEDS: Ketoconazole 2% Cream 15 gm Tube TOP SCH (08:11)
[2022-10-14] MEDS: hydrOXYzine 25 MG TAB PO PRN (21:41)
[2022-10-15] MEDS: Ciprofloxacin 500 MG TAB PO SCH ×2 (06:10→20:31)
[2022-10-15 06:30] LABS: #Eosinphils 0.1 thou/uL (0.0-0.7); #Neutrophils 8.5 thou/uL (1.40-6.50); %Basophils 0.3 % (0.0-1.0); %Eosinophils 0.9 % (0.0-10.0); %Lymphocytes 16.8 % (21.0-51.0); %Monocytes 8.8 % (0.0-10.0); %Neutrophils 73.2 % (42.0-75.0); Hemoglobin 13.2 g/dL (14.0-18.0); Mean Corpuscular HGB CONC 33.5 g/dL (32.0-36.0); Mean Platelet Volume 5.8 fL (7.4-10.4); Platelet Count 505 10x3/uL (130-400); RBC Distribution Width 13.7 % (11.5-14.5); Red Blood Cell (RBC) Count 3.77 mill/uL (4.70-6.10); White Blood Cell (WBC) Count 11.7 10x3/uL (4.8-10.8)
[2022-10-15 06:48] LABS: Anion Gap 15 mmol/L (10-20); BUN (Urea Nitrogen) 20 mg/dL (8.9-20.6); Calc. Creatinine Clearance 96 mL/min (70-130); Carbon Dioxide 23 mmol/L (22-29); Chloride 99 mmol/L (98-107); Estimated GFR 101; Glucose 96 mg/dL (70-105); Potassium 4.2 mmol/L (3.5-5.1); Sodium 133 mmol/L (136-145)
[2022-10-15] MEDS: Saccharomyces boulardii 250 MG CAP PO SCH (08:37)
[2022-10-15] MEDS: Folic Acid 1 MG TAB PO SCH (08:37)
[2022-10-15] MEDS: Ketoconazole 2% Cream 15 gm Tube TOP SCH (08:37)
[2022-10-15] MEDS: Famotidine 20 MG TAB PO SCH ×2 (08:37→20:34)
[2022-10-15] MEDS: Thiamine 100 MG TAB PO SCH (08:37)
[2022-10-15] MEDS: Multivitamin W/ Minerals 1 TAB PO SCH (08:37)
[2022-10-15] MEDS: Escitalopram Oxalate 10 mg Tablet PO SCH (08:38)
[2022-10-15] MEDS: Gabapentin 100 MG CAP PO SCH ×3 (08:38→20:31)
[2022-10-15] MEDS: Losartan 25 MG TAB PO SCH (08:38)
[2022-10-15] MEDS: metroNIDAZOLE 500 MG TAB PO SCH ×3 (08:38→20:31)
[2022-10-15] MEDS: Nystatin 500,000 UNITS/5 ML UDCUP SSW SCH ×4 (08:41→20:32)
[2022-10-15] MEDS: hydrOXYzine 25 MG TAB PO PRN (20:32)
[2022-10-15] MEDS: HYDROcodone/Acetaminophen 5/325 mg Tablet PO PRN (20:33)
[2022-10-15] MEDS: Zolpidem Tartrate 5 MG TAB PO PRN (22:43)
[2022-10-16] MEDS: diphenhydrAMINE 30 GM TUBE TOP PRN ×2 (00:39→22:47)
[2022-10-16] MEDS: Ciprofloxacin 500 MG TAB PO SCH ×2 (05:06→20:18)
[2022-10-16 06:33] LABS: #Basophils 0.1 thou/uL (0.0-0.2); #Eosinphils 0.1 thou/uL (0.0-0.7); #Lymphocytes 1.9 thou/uL (1.20-3.40); #Monocytes 1.1 thou/uL (0.11-0.59); #Neutrophils 9.5 thou/uL (1.40-6.50); %Basophils 0.4 % (0.0-1.0); %Eosinophils 1.1 % (0.0-10.0); %Lymphocytes 14.6 % (21.0-51.0); %Neutrophils 74.9 % (42.0-75.0); Hemoglobin 12.8 g/dL (14.0-18.0); Mean Corpuscular HGB CONC 33.7 g/dL (32.0-36.0); Mean Corpuscular Hemoglobin 34.9 pg (27.0-31.0); Mean Platelet Volume 5.7 fL (7.4-10.4); Platelet Count 508 10x3/uL (130-400); RBC Distribution Width 13.5 % (11.5-14.5); Red Blood Cell (RBC) Count 3.67 mill/uL (4.70-6.10); White Blood Cell (WBC) Count 12.7 10x3/uL (4.8-10.8)
[2022-10-16 06:57] LABS: Anion Gap 15 mmol/L (10-20); BUN (Urea Nitrogen) 18 mg/dL (8.9-20.6); Calc. Creatinine Clearance 96 mL/min (70-130); Calcium 8.8 mg/dL (7.8-10.44); Carbon Dioxide 23 mmol/L (22-29); Chloride 98 mmol/L (98-107); Estimated GFR 101; Glucose 99 mg/dL (70-105); Potassium 3.9 mmol/L (3.5-5.1); Sodium 132 mmol/L (136-145)
[2022-10-16] MEDS: Ketoconazole 2% Cream 15 gm Tube TOP SCH (08:20)
[2022-10-16] MEDS: Gabapentin 100 MG CAP PO SCH ×3 (08:21→20:17)
[2022-10-16] MEDS: Multivitamin W/ Minerals 1 TAB PO SCH (08:21)
[2022-10-16] MEDS: metroNIDAZOLE 500 MG TAB PO SCH ×3 (08:21→20:18)
[2022-10-16] MEDS: Famotidine 20 MG TAB PO SCH ×2 (08:21→20:16)
[2022-10-16] MEDS: Folic Acid 1 MG TAB PO SCH (08:21)
[2022-10-16] MEDS: Losartan 25 MG TAB PO SCH (08:21)
[2022-10-16] MEDS: Saccharomyces boulardii 250 MG CAP PO SCH (08:22)
[2022-10-16] MEDS: Thiamine 100 MG TAB PO SCH (08:22)
[2022-10-16] MEDS: Escitalopram Oxalate 10 mg Tablet PO SCH (08:22)
[2022-10-16] MEDS: Nystatin 500,000 UNITS/5 ML UDCUP SSW SCH ×4 (10:16→20:28)
[2022-10-16] MEDS: HYDROcodone/Acetaminophen 5/325 mg Tablet PO PRN ×2 (10:48→20:15)
[2022-10-16] MEDS ORDERED: Electrolyte Replacement Protocol FS SCH (19:00)
[2022-10-16] MEDS: Zolpidem Tartrate 5 MG TAB PO PRN (22:47)
[2022-10-17 00:28] VITALS: TEMP 98.6
[2022-10-17 06:16] LABS: #Basophils 0.1 thou/uL (0.0-0.2); #Eosinphils 0.2 thou/uL (0.0-0.7); #Lymphocytes 1.9 thou/uL (1.20-3.40); #Neutrophils 7.1 thou/uL (1.40-6.50); %Basophils 0.6 % (0.0-1.0); %Eosinophils 1.9 % (0.0-10.0); %Lymphocytes 18.1 % (21.0-51.0); %Monocytes 9.5 % (0.0-10.0); %Neutrophils 69.9 % (42.0-75.0); Hemoglobin 13.2 g/dL (14.0-18.0); Mean Corpuscular HGB CONC 33.1 g/dL (32.0-36.0); Mean Corpuscular Hemoglobin 34.6 pg (27.0-31.0); Mean Platelet Volume 5.6 fL (7.4-10.4); Platelet Count 579 10x3/uL (130-400); RBC Distribution Width 13.4 % (11.5-14.5); Red Blood Cell (RBC) Count 3.82 mill/uL (4.70-6.10); White Blood Cell (WBC) Count 10.2 10x3/uL (4.8-10.8)
[2022-10-17] MEDS: Ciprofloxacin 500 MG TAB PO SCH (06:25)
[2022-10-17 06:44] LABS: ALT (SGPT) 16 U/L (8-55); AST (SGOT) 18 U/L (5-34); Albumin 3.2 g/dL (3.5-5.0); Alkaline Phosphatase 96 U/L (40-110); Anion Gap 14 mmol/L (10-20); BUN (Urea Nitrogen) 16 mg/dL (8.9-20.6); Bilirubin, Total 0.6 mg/dL (0.2-1.2); Calc. Creatinine Clearance 92 mL/min (70-130); Calcium 9.1 mg/dL (7.8-10.44); Carbon Dioxide 25 mmol/L (22-29); Chloride 99 mmol/L (98-107); Estimated GFR 96; Globulin 4.3 g/dL (2.4-3.5); Glucose 95 mg/dL (70-105); Magnesium 1.9 mg/dL (1.6-2.6); Potassium 4.4 mmol/L (3.5-5.1); Protein, Total 7.5 g/dL (6.0-8.3); Sodium 134 mmol/L (136-145)
[2022-10-17] MEDS: Famotidine 20 MG TAB PO SCH (07:56)
[2022-10-17] MEDS: Ketoconazole 2% Cream 15 gm Tube TOP SCH (07:58)
[2022-10-17] MEDS: Escitalopram Oxalate 10 mg Tablet PO SCH (07:59)
[2022-10-17] MEDS: Losartan 25 MG TAB PO SCH (07:59)
[2022-10-17] MEDS: Folic Acid 1 MG TAB PO SCH (07:59)
[2022-10-17] MEDS: Gabapentin 100 MG CAP PO SCH (07:59)
[2022-10-17] MEDS ORDERED: Magnesium 2 GM/50 ML(in water) 2 GM in Premix Bag 1 BAG IVPB SCH (08:00)
[2022-10-17] MEDS: metroNIDAZOLE 500 MG TAB PO SCH (08:00)
[2022-10-17] MEDS: Saccharomyces boulardii 250 MG CAP PO SCH (08:00)
[2022-10-17] MEDS: HYDROcodone/Acetaminophen 5/325 mg Tablet PO PRN (08:00)
[2022-10-17] MEDS: Multivitamin W/ Minerals 1 TAB PO SCH (08:00)
[2022-10-17] MEDS: Thiamine 100 MG TAB PO SCH (08:01)
[2022-10-17 08:49] VITALS: BP 109/74
[2022-10-17] MEDS: Nystatin 500,000 UNITS/5 ML UDCUP SSW SCH ×2 (09:40→14:16)
== END 2022-10-17 15:15 | DRG 871 ==
LOC: ERS 20:39 → MSONC 22:10
PROVIDERS: ADMIT Internal Medicine; ATTEND Internal Medicine
PROC: 3E03329 Introduction of Other Anti-infective into Peripheral Vein, Percutaneous Approach (ICD-10-PCS; principal; 2022-10-05)
PROC: 0W9G30Z Drainage of Peritoneal Cavity with Drainage Device, Percutaneous Approach (ICD-10-PCS; 2022-10-12)
DX: A41.9 Sepsis, unspecified organism (principal); K65.1 Peritoneal abscess; G93.6 Cerebral edema; Z20.822 Contact with and (suspected) exposure to COVID-19; I50.32 Chronic diastolic (congestive) heart failure; K57.20 Diverticulitis of large intestine with perforation and abscess without bleeding; E87.1 Hypo-osmolality and hyponatremia; E87.20 Acidosis, unspecified; I13.0 Hypertensive heart and chronic kidney disease with heart failure and stage 1 through stage 4 chronic kidney disease, or unspecified chronic kidney disease; I69.354 Hemiplegia and hemiparesis following cerebral infarction affecting left non-dominant side; F10.20 Alcohol dependence, uncomplicated; D53.9 Nutritional anemia, unspecified; D69.6 Thrombocytopenia, unspecified; N18.2 Chronic kidney disease, stage 2 (mild); R94.5 Abnormal results of liver function studies; F17.210 Nicotine dependence, cigarettes, uncomplicated; F32.A Depression, unspecified; L21.9 Seborrheic dermatitis, unspecified; Z79.899 Other long term (current) drug therapy
CPT/HCPCS: 36415; 49020; 49060; 70450; 74018; 74177; 77012; 80048; 80053; 80202; 83605; 83690; 83735; 85025; 85060; 85610; 85730; 86803; 87040; 87389; 87811; 88112; 88305; 96365; 96375; C1729; J0744; J2185; J2270; J2272; J2405; J3370; J3370-JW; J3490; J7050; Q9967; U0003; U0005

== ENCOUNTER 2022-11-02 08:46 | Outpatient (CLI) | payer OTHER | END 2022-11-02 08:47 | disposition home or self-care (01) | LOC: BICCT 08:46 | PROVIDERS: ATTEND Surgery | DX: Z48.815 Encounter for surgical aftercare following surgery on the digestive system (principal); L02.211 Cutaneous abscess of abdominal wall; Z98.890 Other specified postprocedural states | CPT/HCPCS: 74177 ==

== ENCOUNTER 2022-11-20 11:14 | Outpatient (CLI) | payer OTHER ==
[2022-11-20 12:51] LABS: #Eosinphils 0.1 10x3/uL (0.0-0.5); #Monocytes 0.8 10x3/uL (0.0-1.1); #Neutrophils 6.6 10x3/uL (1.5-8.4); %Basophils 0.3 % (0.0-2.0); %Eosinophils 0.8 % (0.0-6.0); %Lymphocytes 17.4 % (18.0-47.0); %Monocytes 8.3 % (0.0-10.0); %Neutrophils 72.9 % (40.0-75.0); Hemoglobin 11.7 g/dL (13.5-17.5); Mean Corpuscular HGB CONC 33.7 g/dL (32.0-36.0); Mean Corpuscular Hemoglobin 32.4 pg (27.0-33.0); Mean Corpuscular Volume 96.1 fl (81.2-95.1); Mean Platelet Volume 8.3 fl (7.4-10.4); Platelet Count 530 10x3/uL (150-450); RBC Distribution Width 14.3 % (11.5-14.5); Red Blood Cell (RBC) Count 3.61 10x6/uL (4.32-5.72)
[2022-11-20 13:19] LABS: ALT (SGPT) 18 U/L (8-55); AST (SGOT) 28 U/L (5-34); Albumin 3.7 g/dL (3.5-5.0); Alkaline Phosphatase 54 U/L (40-110); Anion Gap 14 mmol/L (10-20); BUN (Urea Nitrogen) 12 mg/dL (8.9-20.6); Bilirubin, Total 0.4 mg/dL (0.2-1.2); Calc. Creatinine Clearance 0 mL/min (70-130); Calcium 9.4 mg/dL (7.8-10.44); Carbon Dioxide 27 mmol/L (22-29); Chloride 103 mmol/L (98-107); Estimated GFR 110; Globulin 3.6 g/dL (2.4-3.5); Glucose 106 mg/dL (70-105); Potassium 4.3 mmol/L (3.5-5.1); Protein, Total 7.3 g/dL (6.0-8.3); Sodium 140 mmol/L (136-145)
[2022-11-20 17:24] LABS: Hemoglobin A1c 5.1 % (4.0-6.0)
== END 2022-11-20 11:15 | disposition home or self-care (01) ==
LOC: LABBT 11:14
PROVIDERS: ATTEND Surgery
DX: Z01.818 Encounter for other preprocedural examination (principal)
CPT/HCPCS: 80053; 83036; 85025; 93005; 93010

== ENCOUNTER 2022-11-22 06:35 | Inpatient (IN) | payer OTHER ==
[2022-11-22] MEDS ORDERED: fentaNYL PF 100 MCG/2 ML SYRINGE ONE (09:21)
[2022-11-22] MEDS ORDERED: Sodium Chloride 0.9% 100 ML ONE ×2 (09:23→11:54)
[2022-11-22] MEDS ORDERED: cefOXitin 2 GM VIAL ONE ×2 (09:23→11:50)
[2022-11-22] MEDS ORDERED: Midazolam HCl 2 mg/2 ml Vial ONE (09:30)
[2022-11-22] MEDS ORDERED: Famotidine/PF 20 mg/2ml Vial ONE (09:31)
[2022-11-22] MEDS ORDERED: Esmolol 100 MG/10 ML VIAL ONE (09:49)
[2022-11-22] MEDS ORDERED: Dexamethasone 20 MG/5 ML VIAL ONE (09:49)
[2022-11-22] MEDS ORDERED: Succinylcholine Chloride 100 MG/5 ML SYRINGE FS ONE (09:49)
[2022-11-22] MEDS ORDERED: Lidocaine 1% PF 5 ML VIAL ONE (09:49)
[2022-11-22] MEDS ORDERED: GLYCOPYRROLATE/PF 0.2 MG/ML VIAL ONE (09:49)
[2022-11-22] MEDS ORDERED: Ketorolac Tromethamine 30 MG/ML VIAL ONE (09:49)
[2022-11-22] MEDS ORDERED: NEOSTIGMINE 3 MG/3 ML SYR 3 MG/3 ML SYRINGE ONE (09:49)
[2022-11-22] MEDS ORDERED: PROPOFOL 200 MG/20 ML VIAL ONE (09:49)
[2022-11-22] MEDS ORDERED: Phenylephrine 10 MG/ML VIAL ONE (09:49)
[2022-11-22] MEDS ORDERED: Rocuronium Bromide 10 MG/ML (10ML VIAL) ONE (09:49)
[2022-11-22] MEDS ORDERED: Ondansetron PF 4 MG/2 ML Vial ONE (09:49)
[2022-11-22] MEDS ORDERED: Bupivacaine/Epinephrine 0.25% 30 ML VIAL ONE (10:28)
[2022-11-22] MEDS ORDERED: Promethazine HCl 25 MG/ML VIAL IM PRN ×4 (12:53→15:39)
[2022-11-22] MEDS ORDERED: Ondansetron PF 4 MG/2 ML Vial IVP PRN ×2 (12:53→15:39)
[2022-11-22] MEDS ORDERED: Ipratropium/Albuterol 3 ML NEB NEB PRN (12:53)
[2022-11-22] MEDS ORDERED: Naloxone HCl 0.4 mg/ml Vial IV PRN ×2 (12:57→15:39)
[2022-11-22] MEDS ORDERED: diphenhydrAMINE 50 MG/ML VIAL IM PRN ×2 (12:57→15:39)
[2022-11-22] MEDS ORDERED: diphenhydrAMINE 25 MG CAP PO PRN ×2 (12:57→15:39)
[2022-11-22] MEDS ORDERED: Ondansetron HCl/PF 4 MG/2 ML Vial IVP PRN (12:57)
[2022-11-22] MEDS ORDERED: FENTANYL 500 MCG/10 ML VIAL 2,000 MCG in Sodium Chloride 0.9% 60 ML IV PRN (12:57)
[2022-11-22] MEDS ORDERED: Communication Order-Pharmacy FS SCH (13:00)
[2022-11-22] MEDS ORDERED: Piperacillin/Tazobactam 3.375 GM in Sodium Chloride 0.9% 100 ML IVPB SCH ×3 (13:15→18:00)
[2022-11-22] MEDS ORDERED: fentaNYL 50 mcg/mL 1 mL Vial ONE (13:17)
[2022-11-22] MEDS ORDERED: hydrALAZINE 20 MG/ML VIAL ONE (14:02)
[2022-11-22] MEDS: hydrALAZINE 20 MG/ML VIAL SLOW IVP PRN (14:05)
[2022-11-22] MEDS ORDERED: diphenhydrAMINE 50 MG/ML VIAL IVP PRN (15:39)
[2022-11-22] MEDS ORDERED: HYDROmorphone 10 mg/100 ml CADD IVPB PRN (15:39)
[2022-11-22] MEDS ORDERED: Zolpidem Tartrate 5 MG TAB PO PRN (15:39)
[2022-11-22] MEDS: Sodium Chloride 0.9% 1,000 ML IV SCH (15:43)
[2022-11-22] MEDS ORDERED: Communication Order-Pharmacy FS PRN (15:45)
[2022-11-22 16:20] VITALS: BMI 21.2
[2022-11-22] MEDS ORDERED: Sodium Chloride 0.9% 500 ML IV SCH (17:15)
[2022-11-22] MEDS: HYDROmorphone/PF 10 MG in Sodium Chloride 0.9% 99 ML IVPB PRN (17:20)
[2022-11-22] MEDS: Ketorolac Tromethamine 30 MG/ML VIAL IVP SCH ×2 (18:38→23:54)
[2022-11-22] MEDS: Famotidine/PF 20 mg/2ml Vial SLOW IVP SCH (20:01)
[2022-11-22] MEDS: Piperacillin/Tazobactam 3.375 GM in Sodium Chloride 0.9% 100 ML IVPB SCH (20:01)
[2022-11-22] MEDS: Famotidine 20 MG TAB PO SCH (20:02)
[2022-11-22] MEDS: Zolpidem Tartrate 5 MG TAB PO PRN (23:53)
[2022-11-23] MEDS: Sodium Chloride 0.9% 1,000 ML IV SCH ×5 (00:08→23:38)
[2022-11-23] MEDS: HYDROmorphone/PF 10 MG in Sodium Chloride 0.9% 99 ML IVPB PRN ×2 (03:28→17:55)
[2022-11-23] MEDS: Piperacillin/Tazobactam 3.375 GM in Sodium Chloride 0.9% 100 ML IVPB SCH ×3 (03:29→19:48)
[2022-11-23 05:48] LABS: #Lymphocytes 1.5 thou/uL (1.20-3.40); #Monocytes 1.2 thou/uL (0.11-0.59); #Neutrophils 10.6 thou/uL (1.40-6.50); %Eosinophils 0.1 % (0.0-10.0); %Lymphocytes 11.5 % (21.0-51.0); %Monocytes 8.6 % (0.0-10.0); %Neutrophils 79.8 % (42.0-75.0); Hemoglobin 9.1 g/dL (14.0-18.0); Mean Corpuscular HGB CONC 33.1 g/dL (32.0-36.0); Mean Platelet Volume 6.1 fL (7.4-10.4); Platelet Count 419 10x3/uL (130-400); RBC Distribution Width 13.9 % (11.5-14.5); Red Blood Cell (RBC) Count 2.69 mill/uL (4.70-6.10); White Blood Cell (WBC) Count 13.3 10x3/uL (4.8-10.8)
[2022-11-23] MEDS: Ketorolac Tromethamine 30 MG/ML VIAL IVP SCH ×4 (06:07→23:38)
[2022-11-23 06:08] LABS: Anion Gap 10 mmol/L (10-20); BUN (Urea Nitrogen) 11 mg/dL (8.9-20.6); Calc. Creatinine Clearance 92 mL/min (70-130); Calcium 8.1 mg/dL (7.8-10.44); Carbon Dioxide 21 mmol/L (22-29); Chloride 110 mmol/L (98-107); Estimated GFR 107; Glucose 105 mg/dL (70-105); Potassium 4.1 mmol/L (3.5-5.1); Sodium 137 mmol/L (136-145)
[2022-11-23] MEDS: Famotidine/PF 20 mg/2ml Vial SLOW IVP SCH ×2 (08:39→19:48)
[2022-11-23] MEDS: Gabapentin 300 MG CAP PO SCH ×3 (08:41→19:48)
[2022-11-23] MEDS: Escitalopram Oxalate 20 mg Tablet PO SCH (08:42)
[2022-11-23] MEDS: busPIRone HCl 5 MG TAB PO SCH ×2 (08:42→19:48)
[2022-11-23] MEDS: Famotidine 20 MG TAB PO SCH ×2 (08:43→19:46)
[2022-11-23] MEDS: Losartan 25 MG TAB PO SCH (08:57)
[2022-11-23] MEDS ORDERED: DRY MOUTH SPRAY PO PRN (09:33)
[2022-11-23] MEDS: Acetaminophen 500 MG TAB PO SCH ×3 (11:58→23:38)
[2022-11-23] MEDS: hydrOXYzine 25 MG TAB PO PRN (14:38)
[2022-11-23] MEDS: Zolpidem Tartrate 5 MG TAB PO PRN (23:50)
[2022-11-24] MEDS: Piperacillin/Tazobactam 3.375 GM in Sodium Chloride 0.9% 100 ML IVPB SCH ×3 (03:44→19:44)
[2022-11-24] MEDS: Acetaminophen 500 MG TAB PO SCH ×4 (05:47→23:23)
[2022-11-24] MEDS: Ketorolac Tromethamine 30 MG/ML VIAL IVP SCH ×4 (05:47→23:22)
[2022-11-24 08:42] LABS: #Lymphocytes 1.5 thou/uL (1.20-3.40); #Monocytes 1.3 thou/uL (0.11-0.59); %Basophils 0.1 % (0.0-1.0); %Eosinophils 0.2 % (0.0-10.0); %Lymphocytes 7.7 % (21.0-51.0); %Monocytes 6.3 % (0.0-10.0); %Neutrophils 85.8 % (42.0-75.0); Hemoglobin 9.4 g/dL (14.0-18.0); Mean Corpuscular HGB CONC 33.2 g/dL (32.0-36.0); Mean Corpuscular Hemoglobin 33.4 pg (27.0-31.0); Mean Platelet Volume 5.7 fL (7.4-10.4); Platelet Count 409 10x3/uL (130-400); RBC Distribution Width 13.7 % (11.5-14.5); White Blood Cell (WBC) Count 19.9 10x3/uL (4.8-10.8)
[2022-11-24] MEDS ORDERED: Diphenoxylate HCl/Atropine Tablet PO PRN (08:47)
[2022-11-24 09:03] LABS: ALT (SGPT) 9 U/L (8-55); AST (SGOT) 12 U/L (5-34); Albumin 2.6 g/dL (3.5-5.0); Alkaline Phosphatase 40 U/L (40-110); Anion Gap 16 mmol/L (10-20); BUN (Urea Nitrogen) 10 mg/dL (8.9-20.6); Bilirubin, Total 0.5 mg/dL (0.2-1.2); Calc. Creatinine Clearance 98 mL/min (70-130); Calcium 8.3 mg/dL (7.8-10.44); Carbon Dioxide 15 mmol/L (22-29); Chloride 111 mmol/L (98-107); Estimated GFR 109; Glucose 71 mg/dL (70-105); Potassium 3.8 mmol/L (3.5-5.1); Protein, Total 5.6 g/dL (6.0-8.3); Sodium 138 mmol/L (136-145)
[2022-11-24] MEDS: busPIRone HCl 5 MG TAB PO SCH ×2 (09:08→19:44)
[2022-11-24] MEDS: Gabapentin 300 MG CAP PO SCH ×3 (09:08→19:44)
[2022-11-24] MEDS: Escitalopram Oxalate 20 mg Tablet PO SCH (09:08)
[2022-11-24] MEDS: Famotidine 20 MG TAB PO SCH ×2 (09:08→21:49)
[2022-11-24] MEDS: Sodium Chloride 0.9% 1,000 ML IV SCH ×5 (09:08→23:22)
[2022-11-24] MEDS: Diazepam 5 MG TAB PO PRN (10:49)
[2022-11-24] MEDS: Famotidine/PF 20 mg/2ml Vial SLOW IVP SCH ×2 (12:01→19:44)
[2022-11-24] MEDS: Losartan 25 MG TAB PO SCH (12:06)
[2022-11-24] MEDS: hydrOXYzine 25 MG TAB PO PRN (18:28)
[2022-11-24] MEDS: HYDROmorphone/PF 10 MG in Sodium Chloride 0.9% 99 ML IVPB PRN (20:29)
[2022-11-24] MEDS: Zolpidem Tartrate 5 MG TAB PO PRN (23:23)
[2022-11-25] MEDS: Piperacillin/Tazobactam 3.375 GM in Sodium Chloride 0.9% 100 ML IVPB SCH ×3 (03:37→20:03)
[2022-11-25] MEDS: Ketorolac Tromethamine 30 MG/ML VIAL IVP SCH ×3 (05:50→17:04)
[2022-11-25] MEDS: Acetaminophen 500 MG TAB PO SCH ×3 (05:52→17:05)
[2022-11-25 06:31] LABS: #Eosinphils 0.2 thou/uL (0.0-0.7); #Lymphocytes 1.2 thou/uL (1.20-3.40); #Monocytes 1.1 thou/uL (0.11-0.59); #Neutrophils 15.6 thou/uL (1.40-6.50); %Basophils 0.1 % (0.0-1.0); %Lymphocytes 6.9 % (21.0-51.0); %Monocytes 5.8 % (0.0-10.0); %Neutrophils 86.2 % (42.0-75.0); Hemoglobin 9.5 g/dL (14.0-18.0); Mean Corpuscular HGB CONC 34.4 g/dL (32.0-36.0); Mean Corpuscular Hemoglobin 34.6 pg (27.0-31.0); Mean Platelet Volume 5.9 fL (7.4-10.4); Platelet Count 401 10x3/uL (130-400); RBC Distribution Width 13.9 % (11.5-14.5); Red Blood Cell (RBC) Count 2.75 mill/uL (4.70-6.10); White Blood Cell (WBC) Count 18.1 10x3/uL (4.8-10.8)
[2022-11-25 06:52] LABS: Anion Gap 14 mmol/L (10-20); BUN (Urea Nitrogen) 6 mg/dL (8.9-20.6); Calc. Creatinine Clearance 111 mL/min (70-130); Calcium 8.4 mg/dL (7.8-10.44); Carbon Dioxide 16 mmol/L (22-29); Chloride 111 mmol/L (98-107); Estimated GFR 113; Glucose 71 mg/dL (70-105); Potassium 3.7 mmol/L (3.5-5.1); Sodium 137 mmol/L (136-145)
[2022-11-25] MEDS: Famotidine 20 MG TAB PO SCH ×3 (08:14→20:44)
[2022-11-25] MEDS: Famotidine/PF 20 mg/2ml Vial SLOW IVP SCH ×3 (08:14→20:43)
[2022-11-25] MEDS: Escitalopram Oxalate 20 mg Tablet PO SCH (08:14)
[2022-11-25] MEDS: Gabapentin 300 MG CAP PO SCH ×3 (08:14→20:03)
[2022-11-25] MEDS: Losartan 25 MG TAB PO SCH (08:15)
[2022-11-25] MEDS: busPIRone HCl 5 MG TAB PO SCH ×2 (08:15→20:02)
[2022-11-25] MEDS: hydrOXYzine 25 MG TAB PO PRN (17:05)
[2022-11-25] MEDS: Ondansetron PF 4 MG/2 ML Vial IVP PRN (21:25)
[2022-11-25] MEDS: Zolpidem Tartrate 5 MG TAB PO PRN (22:19)
[2022-11-25] MEDS: Sodium Chloride 0.9% 1,000 ML IV SCH (23:55)
[2022-11-26] MEDS: Acetaminophen 500 MG TAB PO SCH ×5 (00:50→19:37)
[2022-11-26] MEDS: Diazepam 5 MG TAB PO PRN (03:38)
[2022-11-26] MEDS: Piperacillin/Tazobactam 3.375 GM in Sodium Chloride 0.9% 100 ML IVPB SCH ×3 (03:38→19:35)
[2022-11-26 07:00] LABS: Hemoglobin 10.2 g/dL (14.0-18.0); Mean Corpuscular HGB CONC 34.6 g/dL (32.0-36.0); Mean Corpuscular Hemoglobin 34.4 pg (27.0-31.0); Mean Corpuscular Volume 99.6 fl (78.0-98.0); Mean Platelet Volume 6.2 fL (7.4-10.4); Platelet Count 519 10x3/uL (130-400); Red Blood Cell (RBC) Count 2.98 mill/uL (4.70-6.10); White Blood Cell (WBC) Count 20.6 10x3/uL (4.8-10.8)
[2022-11-26 07:09] LABS: Anion Gap 16 mmol/L (10-20); BUN (Urea Nitrogen) 6 mg/dL (8.9-20.6); Calc. Creatinine Clearance 118 mL/min (70-130); Calcium 8.6 mg/dL (7.8-10.44); Carbon Dioxide 16 mmol/L (22-29); Chloride 110 mmol/L (98-107); Estimated GFR 115; Glucose 103 mg/dL (70-105); Potassium 3.6 mmol/L (3.5-5.1); Sodium 138 mmol/L (136-145)
[2022-11-26 07:28] LABS: Band 11 % (5-11); Lymphocytes 2 % (21-51); MDiff Complete? YES; Macrocytosis SLIGHT = 6-15 cells (100X) (0-5/hpf); Monocytes 3 % (0-10); Neutrophil 84 % (42-75); Platelet Morphology Comment Appears Increased; Polychromasia SLIGHT = 2-3 cells (100X) (0-2/hpf)
[2022-11-26] MEDS: Sodium Chloride 0.9% 1,000 ML IV SCH (08:08)
[2022-11-26] MEDS: Ondansetron PF 4 MG/2 ML Vial IVP PRN (09:14)
[2022-11-26] MEDS: Losartan 25 MG TAB PO SCH (09:30)
[2022-11-26] MEDS: busPIRone HCl 5 MG TAB PO SCH ×2 (09:30→19:37)
[2022-11-26] MEDS: Escitalopram Oxalate 20 mg Tablet PO SCH (09:30)
[2022-11-26] MEDS: Famotidine/PF 20 mg/2ml Vial SLOW IVP SCH ×2 (09:32→19:39)
[2022-11-26] MEDS: Famotidine 20 MG TAB PO SCH ×2 (09:32→19:38)
[2022-11-26] MEDS: Gabapentin 300 MG CAP PO SCH ×3 (09:32→19:38)
[2022-11-26] MEDS ORDERED: Losartan 25 MG TAB PO PRN (11:31)
[2022-11-26] MEDS ORDERED: busPIRone HCl 5 MG TAB PO PRN (11:31)
[2022-11-26] MEDS: hydrALAZINE 20 MG/ML VIAL SLOW IVP PRN (11:44)
[2022-11-26] MEDS ORDERED: Lidocaine 2% 6 ML SYR FS SCH (12:15)
[2022-11-26] MEDS ORDERED: Benzocaine 20% Spray 60 ML CAN TOP SCH (12:15)
[2022-11-26] MEDS ORDERED: Lidocaine 2% Jelly 5 ML TUBE TOP SCH (12:15)
[2022-11-26] MEDS: D5 1/2 NS w/20 mEq KCL 1,000 ML IV SCH ×2 (15:11→21:33)
[2022-11-26] MEDS: Metoclopramide HCl 10 MG/2 ML VIAL IVP PRN (17:43)
[2022-11-26] MEDS: Phenol 118 ML BOT PO PRN (18:23)
[2022-11-26] MEDS: Zolpidem Tartrate 5 MG TAB PO SCH (19:37)
[2022-11-27] MEDS: Acetaminophen 500 MG TAB PO SCH ×5 (00:21→23:18)
[2022-11-27] MEDS: HYDROmorphone/PF 10 MG in Sodium Chloride 0.9% 99 ML IVPB PRN (03:25)
[2022-11-27] MEDS: Piperacillin/Tazobactam 3.375 GM in Sodium Chloride 0.9% 100 ML IVPB SCH ×3 (03:28→22:09)
[2022-11-27] MEDS: Diazepam 5 MG TAB PO PRN (05:02)
[2022-11-27 06:35] LABS: Hemoglobin 9.3 g/dL (14.0-18.0); Mean Corpuscular HGB CONC 33.3 g/dL (32.0-36.0); Mean Corpuscular Hemoglobin 32.7 pg (27.0-31.0); Mean Corpuscular Volume 98.1 fl (78.0-98.0); Mean Platelet Volume 6.1 fL (7.4-10.4); Platelet Count 518 10x3/uL (130-400); Red Blood Cell (RBC) Count 2.84 mill/uL (4.70-6.10); White Blood Cell (WBC) Count 27.6 10x3/uL (4.8-10.8)
[2022-11-27] MEDS: D5 1/2 NS w/20 mEq KCL 1,000 ML IV SCH ×2 (06:35→16:45)
[2022-11-27 06:49] LABS: Anion Gap 13 mmol/L (10-20); BUN (Urea Nitrogen) Less than 4 mg/dL (8.9-20.6); Calc. Creatinine Clearance 120 mL/min (70-130); Calcium 8.3 mg/dL (7.8-10.44); Carbon Dioxide 20 mmol/L (22-29); Chloride 107 mmol/L (98-107); Estimated GFR 116; Glucose 144 mg/dL (70-105); Sodium 137 mmol/L (136-145)
[2022-11-27 07:48] LABS: Band 22 % (5-11); Lymphocytes 6 % (21-51); MDiff Complete? YES; Monocytes 4 % (0-10); Neutrophil 68 % (42-75); Platelet Morphology Comment Appears Increased; Polychromasia SLIGHT = 2-3 cells (100X) (0-2/hpf)
[2022-11-27] MEDS ORDERED: Escitalopram Oxalate 10 mg Tablet PO SCH (09:00)
[2022-11-27] MEDS: Famotidine/PF 20 mg/2ml Vial SLOW IVP SCH ×2 (09:35→22:11)
[2022-11-27] MEDS: Gabapentin 300 MG CAP PO SCH ×3 (12:14→22:10)
[2022-11-27] MEDS: Famotidine 20 MG TAB PO SCH ×2 (12:14→23:27)
[2022-11-27] MEDS: busPIRone HCl 5 MG TAB PO SCH ×2 (12:14→22:09)
[2022-11-27] MEDS: Losartan 25 MG TAB PO SCH (12:15)
[2022-11-27] MEDS: Escitalopram Oxalate 20 mg Tablet PO SCH (12:15)
[2022-11-27] MEDS: Metoclopramide HCl 10 MG/2 ML VIAL IVP PRN (16:32)
[2022-11-27] MEDS ORDERED: chlorproMAZINE HCl 25 MG in Sodium Chloride 0.9% 50 ML IVPB PRN (16:53)
[2022-11-27] MEDS: Zolpidem Tartrate 5 MG TAB PO SCH (22:10)
[2022-11-27 23:25] LABS: Hemoglobin 8.5 g/dL (14.0-18.0); Mean Corpuscular Hemoglobin 34.5 pg (27.0-31.0); Mean Corpuscular Volume 98.4 fl (78.0-98.0); Mean Platelet Volume 5.9 fL (7.4-10.4); Platelet Count 417 10x3/uL (130-400); RBC Distribution Width 13.9 % (11.5-14.5); Red Blood Cell (RBC) Count 2.47 mill/uL (4.70-6.10); White Blood Cell (WBC) Count 23.3 10x3/uL (4.8-10.8)
[2022-11-27 23:37] LABS: Lactic Acid 0.9 mmol/L (0.5-2.2)
[2022-11-27 23:43] LABS: ALT (SGPT) 7 U/L (8-55); AST (SGOT) 10 U/L (5-34); Albumin 2.5 g/dL (3.5-5.0); Alkaline Phosphatase 59 U/L (40-110); Anion Gap 10 mmol/L (10-20); BUN (Urea Nitrogen) 4 mg/dL (8.9-20.6); Bilirubin, Total 0.8 mg/dL (0.2-1.2); Calc. Creatinine Clearance 118 mL/min (70-130); Calcium 8.2 mg/dL (7.8-10.44); Carbon Dioxide 24 mmol/L (22-29); Chloride 104 mmol/L (98-107); Estimated GFR 115; Globulin 3.2 g/dL (2.4-3.5); Glucose 126 mg/dL (70-105); Protein, Total 5.7 g/dL (6.0-8.3); Sodium 135 mmol/L (136-145)
[2022-11-27] MEDS ORDERED: Electrolyte Replacement Protocol 1 EACH FS SCH (23:45)
[2022-11-27 23:49] LABS: Band 10 % (5-11); Eosinophils 1 % (0-10); Lymphocytes 11 % (21-51); MDiff Complete? YES; Monocytes 10 % (0-10); Neutrophil 68 % (42-75)
[2022-11-27] MEDS ORDERED: VANCOMYCIN 1.25 GM/250 ML BAG 1.25 GM in Premix Bag 1 BAG IVPB SCH (23:59)
[2022-11-28] MEDS: D5 1/2 NS w/40 mEq KCL 1,000 ML IV SCH ×4 (02:29→21:47)
[2022-11-28 02:39] LABS: Magnesium 1.1 mg/dL (1.6-2.6)
[2022-11-28] MEDS: Acetaminophen 500 MG TAB PO SCH ×4 (04:52→23:14)
[2022-11-28] MEDS: Piperacillin/Tazobactam 3.375 GM in Sodium Chloride 0.9% 100 ML IVPB SCH ×3 (04:52→21:46)
[2022-11-28 07:04] LABS: Hemoglobin 8.4 g/dL (14.0-18.0); Mean Corpuscular HGB CONC 34.6 g/dL (32.0-36.0); Mean Corpuscular Hemoglobin 33.9 pg (27.0-31.0); Mean Corpuscular Volume 98.2 fl (78.0-98.0); Mean Platelet Volume 6.2 fL (7.4-10.4); Platelet Count 448 10x3/uL (130-400); RBC Distribution Width 14.2 % (11.5-14.5); Red Blood Cell (RBC) Count 2.48 mill/uL (4.70-6.10); White Blood Cell (WBC) Count 24.5 10x3/uL (4.8-10.8)
[2022-11-28 07:22] LABS: Anion Gap 10 mmol/L (10-20); BUN (Urea Nitrogen) 4 mg/dL (8.9-20.6); Calc. Creatinine Clearance 126 mL/min (70-130); Calcium 8.1 mg/dL (7.8-10.44); Carbon Dioxide 24 mmol/L (22-29); Chloride 104 mmol/L (98-107); Estimated GFR 117; Glucose 121 mg/dL (70-105); Potassium 3.3 mmol/L (3.5-5.1); Sodium 135 mmol/L (136-145)
[2022-11-28] MEDS ORDERED: Magnesium Sulfate In Water 4 GM in Premix Bag 1 BAG IVPB SCH (08:00)
[2022-11-28] MEDS ORDERED: Potassium Chloride 20 MEQ TAB PO SCH (08:00)
[2022-11-28] MEDS: Losartan 25 MG TAB PO SCH (08:49)
[2022-11-28] MEDS: busPIRone HCl 5 MG TAB PO SCH ×2 (08:49→21:42)
[2022-11-28] MEDS: Escitalopram Oxalate 20 mg Tablet PO SCH (08:50)
[2022-11-28] MEDS: Gabapentin 300 MG CAP PO SCH ×2 (08:50→15:00)
[2022-11-28] MEDS: Famotidine 20 MG TAB PO SCH (08:50)
[2022-11-28] MEDS: Famotidine/PF 20 mg/2ml Vial SLOW IVP SCH ×2 (08:51→21:47)
[2022-11-28] MEDS: Vancomycin 1 GM in Premix Bag 1 BAG IVPB SCH ×2 (08:52→23:29)
[2022-11-28 08:58] LABS: Band 15 % (5-11); Eosinophils 2 % (0-10); Lymphocytes 5 % (21-51); MDiff Complete? YES; Monocytes 3 % (0-10); Neutrophil 75 % (42-75); Platelet Morphology Comment Appears Increased; Polychromasia SLIGHT = 2-3 cells (100X) (0-2/hpf)
[2022-11-28] MEDS ORDERED: traMADol HCl 50 MG TAB PO PRN ×2 (12:05→12:06)
[2022-11-28] MEDS ORDERED: fentaNYL 50 mcg/mL 1 mL Vial SLOW IVP PRN (12:06)
[2022-11-28] MEDS ORDERED: fentaNYL PF 100 MCG/2 ML SYRINGE ONE (15:37)
[2022-11-28] MEDS ORDERED: HYDROmorphone 0.5 MG/0.5 ML SYRINGE ONE (15:37)
[2022-11-28] MEDS ORDERED: SUGAMMADEX SODIUM 200 MG/2 ML VIAL ONE (15:37)
[2022-11-28] MEDS ORDERED: PROPOFOL 200 MG/20 ML VIAL ONE (15:50)
[2022-11-28] MEDS ORDERED: NEOSTIGMINE 3 MG/3 ML SYR 3 MG/3 ML SYRINGE ONE (15:50)
[2022-11-28] MEDS ORDERED: Labetalol HCl 100 MG/20 ML VIAL ONE (15:50)
[2022-11-28] MEDS ORDERED: Rocuronium Bromide 10 MG/ML (10ML VIAL) ONE (15:50)
[2022-11-28] MEDS ORDERED: PHENYLEPHRINE-NS 100 MCG/ML 10 ML SYRINGE ONE (15:50)
[2022-11-28] MEDS ORDERED: Ondansetron PF 4 MG/2 ML Vial ONE (15:50)
[2022-11-28] MEDS ORDERED: Dexamethasone 20 MG/5 ML VIAL ONE (15:50)
[2022-11-28] MEDS ORDERED: Glycopyrrolate 0.2 MG/ML 5 ML SYRINGE ONE (15:50)
[2022-11-28] MEDS ORDERED: Lidocaine 1% PF 5 ML VIAL ONE (15:50)
[2022-11-28] MEDS ORDERED: Promethazine HCl 25 MG/ML VIAL IM PRN ×2 (18:32→18:33)
[2022-11-28] MEDS ORDERED: Morphine Sulfate 2 MG/ML SYRINGE SLOW IVP PRN (18:32)
[2022-11-28] MEDS ORDERED: Meperidine HCl/PF 25 MG/ML VIAL SLOW IVP PRN (18:32)
[2022-11-28] MEDS ORDERED: HYDROmorphone 2 MG/ML VIAL SLOW IVP PRN (18:32)
[2022-11-28] MEDS ORDERED: Ondansetron HCl/PF 4 MG/2 ML Vial IVP PRN (18:32)
[2022-11-28] MEDS ORDERED: diphenhydrAMINE 25 MG CAP PO PRN (18:33)
[2022-11-28] MEDS ORDERED: Naloxone HCl 0.4 mg/ml Vial IV PRN (18:33)
[2022-11-28] MEDS ORDERED: diphenhydrAMINE 50 MG/ML VIAL IM PRN (18:33)
[2022-11-28] MEDS ORDERED: Ondansetron PF 4 MG/2 ML Vial IVP PRN (18:33)
[2022-11-28] MEDS ORDERED: fentaNYL 50 mcg/mL 1 mL Vial ONE (18:35)
[2022-11-28] MEDS ORDERED: Communication Order-Pharmacy FS SCH (18:45)
[2022-11-28] MEDS: hydrALAZINE 20 MG/ML VIAL SLOW IVP PRN (21:46)
[2022-11-29] MEDS: Zolpidem Tartrate 5 MG TAB PO PRN ×2 (00:02→22:27)
[2022-11-29] MEDS: D5 1/2 NS w/40 mEq KCL 1,000 ML IV SCH ×2 (03:50→06:01)
[2022-11-29] MEDS: hydrALAZINE 20 MG/ML VIAL SLOW IVP PRN ×3 (04:03→17:11)
[2022-11-29] MEDS: Piperacillin/Tazobactam 3.375 GM in Sodium Chloride 0.9% 100 ML IVPB SCH ×3 (04:03→20:16)
[2022-11-29] MEDS: Phenol 118 ML BOT PO PRN (04:16)
[2022-11-29] MEDS: Vancomycin 1 GM in Premix Bag 1 BAG IVPB SCH ×4 (05:00→22:25)
[2022-11-29] MEDS: Acetaminophen 500 MG TAB PO SCH ×4 (06:02→23:37)
[2022-11-29 06:03] LABS: Hemoglobin 10.3 g/dL (14.0-18.0); Mean Corpuscular HGB CONC 34.8 g/dL (32.0-36.0); Mean Corpuscular Hemoglobin 34.9 pg (27.0-31.0); Mean Platelet Volume 6.1 fL (7.4-10.4); Platelet Count 557 10x3/uL (130-400); RBC Distribution Width 14.2 % (11.5-14.5); Red Blood Cell (RBC) Count 2.96 mill/uL (4.70-6.10)
[2022-11-29 06:11] LABS: Anion Gap 14 mmol/L (10-20); BUN (Urea Nitrogen) 6 mg/dL (8.9-20.6); Calc. Creatinine Clearance 124 mL/min (70-130); Calcium 7.8 mg/dL (7.8-10.44); Carbon Dioxide 21 mmol/L (22-29); Chloride 105 mmol/L (98-107); Estimated GFR 117; Glucose 180 mg/dL (70-105); Potassium 4.6 mmol/L (3.5-5.1); Sodium 135 mmol/L (136-145)
[2022-11-29 06:38] LABS: Lymphocytes 4 % (21-51); MDiff Complete? YES; Macrocytosis SLIGHT = 6-15 cells (100X) (0-5/hpf); Monocytes 2 % (0-10); Neutrophil 93 % (42-75); Platelet Morphology Comment Appears Increased; Polychromasia SLIGHT = 2-3 cells (100X) (0-2/hpf); Reactive Lymphocytes 1 % (0-10)
[2022-11-29] MEDS: Escitalopram Oxalate 20 mg Tablet PO SCH (09:18)
[2022-11-29] MEDS: busPIRone HCl 5 MG TAB PO SCH ×2 (09:18→20:17)
[2022-11-29] MEDS: Losartan 25 MG TAB PO SCH (09:18)
[2022-11-29] MEDS: Famotidine/PF 20 mg/2ml Vial SLOW IVP SCH ×2 (09:18→20:16)
[2022-11-29] MEDS ORDERED: D5 0.9% NS w/ 20 mEq KCl 1,000 ML IV SCH ×2 (14:30→16:15)
[2022-11-29] MEDS ORDERED: D15W-AA 5% with Lytes 2,000 ML IV SCH (16:30)
[2022-11-29] MEDS: HYDROmorphone 10 mg/100 ml CADD IVPB PRN (16:58)
[2022-11-29] MEDS: diphenhydrAMINE 50 MG/ML VIAL IVP PRN (17:14)
[2022-11-29 22:13] LABS: Vancomycin, Trough 17.9 ug/mL
[2022-11-30] MEDS: Acetaminophen 500 MG TAB PO SCH ×4 (03:06→23:01)
[2022-11-30] MEDS: Piperacillin/Tazobactam 3.375 GM in Sodium Chloride 0.9% 100 ML IVPB SCH ×3 (03:06→20:45)
[2022-11-30] MEDS: traZODone HCl 50 MG TAB PO PRN ×2 (03:06→23:01)
[2022-11-30] MEDS: Vancomycin 1 GM in Premix Bag 1 BAG IVPB SCH ×3 (05:08→22:12)
[2022-11-30 05:57] LABS: Hemoglobin 8.4 g/dL (14.0-18.0); Mean Corpuscular HGB CONC 34.6 g/dL (32.0-36.0); Mean Corpuscular Hemoglobin 35.2 pg (27.0-31.0); Mean Platelet Volume 6.1 fL (7.4-10.4); Platelet Count 620 10x3/uL (130-400); RBC Distribution Width 14.4 % (11.5-14.5); Red Blood Cell (RBC) Count 2.37 mill/uL (4.70-6.10)
[2022-11-30 05:58] LABS: Phosphorus 2.8 mg/dL (2.3-4.7)
[2022-11-30 06:00] LABS: Anion Gap 12 mmol/L (10-20); BUN (Urea Nitrogen) 8 mg/dL (8.9-20.6); Calc. Creatinine Clearance 138 mL/min (70-130); Calcium 7.9 mg/dL (7.8-10.44); Carbon Dioxide 25 mmol/L (22-29); Chloride 104 mmol/L (98-107); Estimated GFR 121; Glucose 104 mg/dL (70-105); Magnesium 1.8 mg/dL (1.6-2.6); Potassium 3.7 mmol/L (3.5-5.1); Sodium 137 mmol/L (136-145)
[2022-11-30 06:28] LABS: Band 15 % (5-11); Lymphocytes 7 % (21-51); MDiff Complete? YES; Monocytes 6 % (0-10); Myelocyte 1 % (0-0); Neutrophil 71 % (42-75)
[2022-11-30] MEDS ORDERED: Potassium Chloride 20 MEQ TAB PER TUBE SCH (07:30)
[2022-11-30] MEDS: diphenhydrAMINE 50 MG/ML VIAL IVP PRN (07:46)
[2022-11-30] MEDS ORDERED: Potassium Bicarbonate/Cit Ac 20 MEQ TAB PER TUBE SCH (08:00)
[2022-11-30] MEDS ORDERED: Magnesium 2 GM/50 ML(in water) 2 GM in Premix Bag 1 BAG IVPB SCH (08:00)
[2022-11-30] MEDS: busPIRone HCl 5 MG TAB PO SCH ×2 (09:27→21:53)
[2022-11-30] MEDS: Escitalopram Oxalate 20 mg Tablet PO SCH (09:27)
[2022-11-30] MEDS: Losartan 25 MG TAB PO SCH (09:27)
[2022-11-30] MEDS: Famotidine/PF 20 mg/2ml Vial SLOW IVP SCH ×2 (09:28→20:45)
[2022-11-30] MEDS: MULTIVITAMINS IV SCH (14:19)
[2022-11-30] MEDS: [UNRECOGNIZED DRUG - OTHER] IV SCH (14:19)
[2022-11-30] MEDS: SODIUM ACETATE IV SCH (14:19)
[2022-11-30] MEDS: MAGNESIUM SULFATE IV SCH (14:19)
[2022-11-30 21:43] LABS: Vancomycin, Trough 15.2 ug/mL
[2022-11-30] MEDS: HYDROmorphone 10 mg/100 ml CADD IVPB PRN (21:46)
[2022-11-30] MEDS: Gabapentin 300 MG CAP PO SCH (21:52)
[2022-11-30] MEDS: Zolpidem Tartrate 5 MG TAB PO PRN (23:01)
[2022-11-30] MEDS: Melatonin 3 MG TAB PER TUBE PRN (23:01)
[2022-11-30] MEDS ORDERED: Baclofen 10 MG TAB PO SCH (23:45)
[2022-12-01] MEDS: Piperacillin/Tazobactam 3.375 GM in Sodium Chloride 0.9% 100 ML IVPB SCH ×3 (04:03→21:03)
[2022-12-01] MEDS: Vancomycin 1 GM in Premix Bag 1 BAG IVPB SCH ×3 (05:21→21:59)
[2022-12-01] MEDS: diphenhydrAMINE 50 MG/ML VIAL IVP PRN ×3 (05:22→18:36)
[2022-12-01] MEDS: Acetaminophen 500 MG TAB PO SCH ×3 (05:22→18:36)
[2022-12-01 07:38] LABS: Hemoglobin 8.6 g/dL (14.0-18.0); Mean Corpuscular HGB CONC 34.3 g/dL (32.0-36.0); Mean Corpuscular Hemoglobin 34.6 pg (27.0-31.0); Mean Platelet Volume 5.8 fL (7.4-10.4); Platelet Count 586 10x3/uL (130-400); RBC Distribution Width 14.3 % (11.5-14.5); Red Blood Cell (RBC) Count 2.47 mill/uL (4.70-6.10); White Blood Cell (WBC) Count 17.9 10x3/uL (4.8-10.8)
[2022-12-01 07:53] LABS: Anion Gap 11 mmol/L (10-20); BUN (Urea Nitrogen) 11 mg/dL (8.9-20.6); Calc. Creatinine Clearance 136 mL/min (70-130); Calcium 8.3 mg/dL (7.8-10.44); Carbon Dioxide 25 mmol/L (22-29); Chloride 103 mmol/L (98-107); Estimated GFR 120; Glucose 104 mg/dL (70-105); Potassium 3.9 mmol/L (3.5-5.1); Sodium 135 mmol/L (136-145)
[2022-12-01] MEDS: Gabapentin 300 MG CAP PO SCH ×3 (08:43→21:03)
[2022-12-01] MEDS: Famotidine/PF 20 mg/2ml Vial SLOW IVP SCH ×2 (08:44→21:02)
[2022-12-01] MEDS: Losartan 25 MG TAB PO SCH (09:00)
[2022-12-01 09:09] LABS: Band 18 % (5-11); Eosinophils 3 % (0-10); Lymphocytes 8 % (21-51); MDiff Complete? YES; Metamyelocyte 2 % (0-0); Monocytes 12 % (0-10); Myelocyte 3 % (0-0); Neutrophil 53 % (42-75); Platelet Morphology Comment Appears Increased; Polychromasia SLIGHT = 2-3 cells (100X) (0-2/hpf); Reactive Lymphocytes 2 % (0-10); Toxic Granulation SLIGHT
[2022-12-01] MEDS: Escitalopram Oxalate 20 mg Tablet PO SCH (09:42)
[2022-12-01] MEDS: busPIRone HCl 5 MG TAB PO SCH ×2 (09:42→21:03)
[2022-12-01] MEDS: SODIUM ACETATE IV SCH (14:40)
[2022-12-01] MEDS: MAGNESIUM SULFATE IV SCH (14:40)
[2022-12-01] MEDS: [UNRECOGNIZED DRUG - OTHER] IV SCH (14:40)
[2022-12-01] MEDS: MULTIVITAMINS IV SCH (14:40)
[2022-12-02] MEDS: Acetaminophen 500 MG TAB PO SCH ×4 (00:09→18:22)
[2022-12-02] MEDS: Melatonin 3 MG TAB PER TUBE PRN (00:49)
[2022-12-02] MEDS: Zolpidem Tartrate 5 MG TAB PO PRN (00:49)
[2022-12-02] MEDS: traZODone HCl 50 MG TAB PO PRN (00:49)
[2022-12-02] MEDS: Piperacillin/Tazobactam 3.375 GM in Sodium Chloride 0.9% 100 ML IVPB SCH ×3 (04:19→21:31)
[2022-12-02] MEDS: Baclofen 10 MG TAB PO PRN (04:53)
[2022-12-02] MEDS: Vancomycin 1 GM in Premix Bag 1 BAG IVPB SCH (06:13)
[2022-12-02] MEDS: Famotidine/PF 20 mg/2ml Vial SLOW IVP SCH ×2 (08:32→21:31)
[2022-12-02] MEDS ORDERED: Activase 2 MG VIAL CATH SCH (09:15)
[2022-12-02] MEDS ORDERED: Sterile Water 10 ML VIAL FS SCH (09:15)
[2022-12-02 09:29] LABS: Hemoglobin 9.9 g/dL (14.0-18.0); Mean Corpuscular HGB CONC 34.6 g/dL (32.0-36.0); Mean Corpuscular Hemoglobin 34.6 pg (27.0-31.0); Mean Corpuscular Volume 99.9 fl (78.0-98.0); Mean Platelet Volume 5.9 fL (7.4-10.4); Platelet Count 721 10x3/uL (130-400); RBC Distribution Width 14.5 % (11.5-14.5); Red Blood Cell (RBC) Count 2.86 mill/uL (4.70-6.10)
[2022-12-02 09:39] LABS: Anion Gap 14 mmol/L (10-20); BUN (Urea Nitrogen) 13 mg/dL (8.9-20.6); Calc. Creatinine Clearance 124 mL/min (70-130); Calcium 8.6 mg/dL (7.8-10.44); Carbon Dioxide 23 mmol/L (22-29); Chloride 100 mmol/L (98-107); Estimated GFR 117; Glucose 145 mg/dL (70-105); Magnesium 1.9 mg/dL (1.6-2.6); Potassium 3.7 mmol/L (3.5-5.1); Sodium 133 mmol/L (136-145)
[2022-12-02 10:58] LABS: Band 6 % (5-11); Eosinophils 2 % (0-10); Large Platelets SLIGHT; Lymphocytes 5 % (21-51); MDiff Complete? YES; Monocytes 9 % (0-10); Neutrophil 78 % (42-75); Platelet Morphology Comment Appears Increased; White Blood Cell (WBC) Count 25.5 10x3/uL (4.8-10.8)
[2022-12-02] MEDS ORDERED: Magnesium 2 GM/50 ML(in water) 2 GM in Premix Bag 1 BAG IVPB SCH (11:30)
[2022-12-02] MEDS: Losartan 25 MG TAB PO SCH (12:04)
[2022-12-02] MEDS: busPIRone HCl 5 MG TAB PO SCH ×2 (12:04→21:32)
[2022-12-02] MEDS: Escitalopram Oxalate 20 mg Tablet PO SCH (12:04)
[2022-12-02] MEDS: Gabapentin 300 MG CAP PO SCH ×3 (12:04→21:31)
[2022-12-02] MEDS: MULTIVITAMINS IV SCH (14:32)
[2022-12-02] MEDS: [UNRECOGNIZED DRUG - OTHER] IV SCH (14:32)
[2022-12-02] MEDS: SODIUM ACETATE IV SCH (14:32)
[2022-12-02] MEDS: MAGNESIUM SULFATE IV SCH (14:32)
[2022-12-02 14:45] LABS: Bacteria/HPF None Seen HPF (None Seen); Bilirubin Negative (Negative); Blood, Urine Negative (Negative); CAUTI Indications for Culture Dysuria,urgency,freq; Clarity Clear (Clear); Glucose, Urine (Dipstick) Normal (Negative); Ketone, Urine Negative (Negative); Leukocyte Negative Leu/uL (Negative); Nitrite Negative (Negative); Protein, Urine (Dipstick) Negative (Neg-Trace); RBC/HPF 0-3 HPF (0-3); Specific Gravity, Urine 1.011 (1.002-1.036); Squamous Epithelial None Seen HPF (0-3); Urobilinogen Normal mg/dL (Less than 2); WBC/HPF 0-3 HPF (0-3); pH, Urine 6.5 (5.0-9.0)
[2022-12-02 14:47] LABS: Urine Culture Reflex No No
[2022-12-02 15:07] LABS: Legionella Urinary Ag Negative (Negative); Strep pneumo Urine Ag NEGATIVE (NEGATIVE)
[2022-12-02 16:45] LABS: ALT (SGPT) 68 U/L (8-55); AST (SGOT) 66 U/L (5-34); Albumin 2.9 g/dL (3.5-5.0); Alkaline Phosphatase 284 U/L (40-110); Bilirubin, Direct 0.7 mg/dL (0.1-0.3); Bilirubin, Total 0.9 mg/dL (0.2-1.2); Lipase 280 U/L (8-78); Protein, Total 6.6 g/dL (6.0-8.3)
[2022-12-02] MEDS: Ipratropium/Albuterol 3 ML NEB NEB SCH (19:00)
[2022-12-02] MEDS: guaiFENesin ER 600 MG TAB PO SCH (21:31)
[2022-12-02] MEDS: Benzonatate 100 MG CAP PO SCH (21:32)
[2022-12-02] MEDS: Ketorolac Tromethamine 30 MG/ML VIAL IVP SCH (21:50)
[2022-12-03] MEDS: Acetaminophen 500 MG TAB PO SCH ×3 (01:05→17:58)
[2022-12-03] MEDS: Ipratropium/Albuterol 3 ML NEB NEB SCH ×3 (04:52→10:37)
[2022-12-03] MEDS: Ketorolac Tromethamine 30 MG/ML VIAL IVP SCH ×4 (04:56→21:03)
[2022-12-03] MEDS: Piperacillin/Tazobactam 3.375 GM in Sodium Chloride 0.9% 100 ML IVPB SCH ×3 (04:57→21:02)
[2022-12-03 07:48] LABS: Vancomycin, Trough 10.6 ug/mL
[2022-12-03] MEDS: Famotidine/PF 20 mg/2ml Vial SLOW IVP SCH ×2 (10:04→18:05)
[2022-12-03] MEDS: guaiFENesin ER 600 MG TAB PO SCH ×2 (10:04→23:56)
[2022-12-03] MEDS: Escitalopram Oxalate 20 mg Tablet PO SCH (10:04)
[2022-12-03] MEDS: busPIRone HCl 5 MG TAB PO SCH (10:05)
[2022-12-03] MEDS: Losartan 25 MG TAB PO SCH (10:05)
[2022-12-03] MEDS: Gabapentin 300 MG CAP PO SCH ×2 (10:05→17:57)
[2022-12-03] MEDS: Benzonatate 100 MG CAP PO SCH ×2 (10:05→15:00)
[2022-12-03] MEDS: Ipratropium 200 Puff Oral Inhaler INH SCH ×3 (10:37→18:34)
[2022-12-03] MEDS: Albuterol 200 PUFF (6.7GM INHALER) INH SCH ×3 (10:37→18:37)
[2022-12-03] MEDS ORDERED: Albuterol 200 PUFF (6.7GM INHALER) INH PRN (10:40)
[2022-12-03] MEDS ORDERED: Ipratropium 200 Puff Oral Inhaler INH PRN (10:41)
[2022-12-03] MEDS ORDERED: Ipratropium 200 Puff Oral Inhaler INH SCH (11:00)
[2022-12-03 11:14] LABS: Hemoglobin 8.5 g/dL (14.0-18.0); Mean Corpuscular HGB CONC 34.7 g/dL (32.0-36.0); Mean Corpuscular Hemoglobin 35.1 pg (27.0-31.0); Platelet Count 667 10x3/uL (130-400); RBC Distribution Width 14.5 % (11.5-14.5); Red Blood Cell (RBC) Count 2.42 mill/uL (4.70-6.10); White Blood Cell (WBC) Count 20.3 10x3/uL (4.8-10.8)
[2022-12-03 11:21] LABS: Anion Gap 13 mmol/L (10-20); BUN (Urea Nitrogen) 23 mg/dL (8.9-20.6); Calc. Creatinine Clearance 109 mL/min (70-130); Calcium 8.6 mg/dL (7.8-10.44); Carbon Dioxide 25 mmol/L (22-29); Chloride 102 mmol/L (98-107); Estimated GFR 112; Glucose 107 mg/dL (70-105); Magnesium 2.3 mg/dL (1.6-2.6); Potassium 4.5 mmol/L (3.5-5.1); Sodium 135 mmol/L (136-145)
[2022-12-03 11:35] LABS: ALT (SGPT) 152 U/L (8-55); AST (SGOT) 113 U/L (5-34); Albumin 2.8 g/dL (3.5-5.0); Alkaline Phosphatase 286 U/L (40-110); Bilirubin, Direct 0.5 mg/dL (0.1-0.3); Bilirubin, Total 0.8 mg/dL (0.2-1.2); Lipase 266 U/L (8-78); Protein, Total 6.4 g/dL (6.0-8.3)
[2022-12-03 12:08] LABS: Band 10 % (5-11); Eosinophils 9 % (0-10); Lymphocytes 16 % (21-51); MDiff Complete? YES; Macrocytosis SLIGHT = 6-15 cells (100X) (0-5/hpf); Monocytes 13 % (0-10); Neutrophil 52 % (42-75); Platelet Morphology Comment Appears Increased; Polychromasia SLIGHT = 2-3 cells (100X) (0-2/hpf); Vacuoles SLIGHT
[2022-12-03] MEDS: [UNRECOGNIZED DRUG - OTHER] IV SCH (15:15)
[2022-12-03] MEDS: MAGNESIUM SULFATE IV SCH (15:15)
[2022-12-03] MEDS: SODIUM ACETATE IV SCH (15:15)
[2022-12-03] MEDS: MULTIVITAMINS IV SCH (15:15)
[2022-12-03] MEDS ORDERED: Lidocaine 2% Viscous Solution 10 ML, Aluminum & Magnesium Hydroxide 30 ML SSW SCH (21:00)
[2022-12-03] MEDS: Zolpidem Tartrate 5 MG TAB PO PRN (23:56)
[2022-12-04] MEDS: busPIRone HCl 5 MG TAB PO SCH ×3 (00:01→21:28)
[2022-12-04] MEDS: Gabapentin 300 MG CAP PO SCH ×4 (00:01→21:28)
[2022-12-04] MEDS: Benzonatate 100 MG CAP PO SCH ×4 (00:01→21:26)
[2022-12-04] MEDS: traZODone HCl 50 MG TAB PO PRN (01:41)
[2022-12-04] MEDS: Melatonin 3 MG TAB PER TUBE PRN (01:41)
[2022-12-04] MEDS: Piperacillin/Tazobactam 3.375 GM in Sodium Chloride 0.9% 100 ML IVPB SCH ×2 (05:18→11:45)
[2022-12-04] MEDS: Ketorolac Tromethamine 30 MG/ML VIAL IVP SCH ×4 (05:19→21:59)
[2022-12-04] MEDS: HYDROmorphone 10 mg/100 ml CADD IVPB PRN (05:20)
[2022-12-04] MEDS: Ipratropium 200 Puff Oral Inhaler INH SCH ×3 (06:51→13:24)
[2022-12-04] MEDS: Albuterol 200 PUFF (6.7GM INHALER) INH SCH ×3 (06:52→13:24)
[2022-12-04] MEDS: Acetaminophen 500 MG TAB PO SCH ×4 (07:20→23:17)
[2022-12-04] MEDS: guaiFENesin ER 600 MG TAB PO SCH ×2 (08:55→21:28)
[2022-12-04] MEDS: Famotidine/PF 20 mg/2ml Vial SLOW IVP SCH ×2 (08:55→21:59)
[2022-12-04] MEDS: Losartan 25 MG TAB PO SCH (08:55)
[2022-12-04] MEDS: Escitalopram Oxalate 20 mg Tablet PO SCH (09:14)
[2022-12-04 10:37] LABS: Anion Gap 14 mmol/L (10-20); BUN (Urea Nitrogen) 25 mg/dL (8.9-20.6); Calc. Creatinine Clearance 102 mL/min (70-130); Calcium 8.8 mg/dL (7.8-10.44); Carbon Dioxide 26 mmol/L (22-29); Chloride 100 mmol/L (98-107); Estimated GFR 110; Glucose 125 mg/dL (70-105); Lipase 389 U/L (8-78); Magnesium 2.1 mg/dL (1.6-2.6); Potassium 4.4 mmol/L (3.5-5.1); Sodium 136 mmol/L (136-145)
[2022-12-04 10:41] LABS: Hemoglobin 8.9 g/dL (14.0-18.0); Mean Corpuscular HGB CONC 34.8 g/dL (32.0-36.0); Mean Corpuscular Hemoglobin 35.2 pg (27.0-31.0); Mean Platelet Volume 6.1 fL (7.4-10.4); Platelet Count 752 10x3/uL (130-400); RBC Distribution Width 14.8 % (11.5-14.5); Red Blood Cell (RBC) Count 2.54 mill/uL (4.70-6.10); White Blood Cell (WBC) Count 20.4 10x3/uL (4.8-10.8)
[2022-12-04] MEDS ORDERED: Sodium Chloride 0.9% 500 ML IV SCH (10:45)
[2022-12-04] MEDS: Lorazepam 2 MG/ML VIAL SLOW IVP PRN ×2 (11:08→21:55)
[2022-12-04 11:29] LABS: Band 8 % (5-11); Eosinophils 4 % (0-10); Lymphocytes 16 % (21-51); MDiff Complete? YES; Metamyelocyte 2 % (0-0); Monocytes 8 % (0-10); Myelocyte 1 % (0-0); Neutrophil 61 % (42-75); Platelet Morphology Comment Appears Increased; Polychromasia SLIGHT = 2-3 cells (100X) (0-2/hpf)
[2022-12-04] MEDS: Sodium Chloride 0.9% 1,000 ML IV SCH (11:45)
[2022-12-04] MEDS: SODIUM ACETATE IV SCH (14:28)
[2022-12-04] MEDS: MAGNESIUM SULFATE IV SCH (14:28)
[2022-12-04] MEDS: [UNRECOGNIZED DRUG - OTHER] IV SCH (14:28)
[2022-12-04] MEDS: MULTIVITAMINS IV SCH (14:28)
[2022-12-04] MEDS ORDERED: Meropenem 1 GM in Sodium Chloride 0.9% 100 ML IVPB SCH (14:45)
[2022-12-04] MEDS: Albuterol 200 PUFF (6.7GM INHALER) INH PRN (18:44)
[2022-12-04] MEDS: Meropenem 1 GM in Sodium Chloride 0.9% 100 ML IVPB SCH (21:59)
[2022-12-05] MEDS: Ketorolac Tromethamine 30 MG/ML VIAL IVP SCH ×5 (01:50→20:50)
[2022-12-05] MEDS: Lorazepam 2 MG/ML VIAL SLOW IVP PRN ×4 (01:51→20:41)
[2022-12-05] MEDS: Meropenem 1 GM in Sodium Chloride 0.9% 100 ML IVPB SCH ×2 (05:34→15:09)
[2022-12-05] MEDS: Benzonatate 100 MG CAP PO SCH ×5 (05:34→20:40)
[2022-12-05] MEDS: Acetaminophen 500 MG TAB PO SCH ×3 (05:35→22:32)
[2022-12-05 06:37] LABS: Anion Gap 13 mmol/L (10-20); BUN (Urea Nitrogen) 23 mg/dL (8.9-20.6); Calc. Creatinine Clearance 105 mL/min (70-130); Calcium 8.9 mg/dL (7.8-10.44); Carbon Dioxide 26 mmol/L (22-29); Chloride 102 mmol/L (98-107); Estimated GFR 111; Glucose 101 mg/dL (70-105); Lipase 182 U/L (8-78); Magnesium 2.1 mg/dL (1.6-2.6); Potassium 4.7 mmol/L (3.5-5.1); Sodium 136 mmol/L (136-145)
[2022-12-05 06:41] LABS: Hemoglobin 8.2 g/dL (14.0-18.0); Mean Corpuscular HGB CONC 34.4 g/dL (32.0-36.0); Mean Corpuscular Hemoglobin 34.9 pg (27.0-31.0); Platelet Count 718 10x3/uL (130-400); RBC Distribution Width 15.4 % (11.5-14.5); Red Blood Cell (RBC) Count 2.35 mill/uL (4.70-6.10); White Blood Cell (WBC) Count 18.6 10x3/uL (4.8-10.8)
[2022-12-05 07:09] LABS: Band 9 % (5-11); Eosinophils 7 % (0-10); Lymphocytes 12 % (21-51); MDiff Complete? YES; Metamyelocyte 1 % (0-0); Monocytes 14 % (0-10); Myelocyte 5 % (0-0); Neutrophil 49 % (42-75); Platelet Morphology Comment Appears Increased; Polychromasia SLIGHT = 2-3 cells (100X) (0-2/hpf); Reactive Lymphocytes 2 % (0-10)
[2022-12-05] MEDS: Famotidine/PF 20 mg/2ml Vial SLOW IVP SCH ×2 (10:19→20:40)
[2022-12-05] MEDS: Losartan 25 MG TAB PO SCH (10:20)
[2022-12-05] MEDS: guaiFENesin ER 600 MG TAB PO SCH ×3 (10:20→22:54)
[2022-12-05] MEDS: busPIRone HCl 5 MG TAB PO SCH ×2 (11:02→20:40)
[2022-12-05] MEDS: Gabapentin 300 MG CAP PO SCH ×3 (11:03→20:41)
[2022-12-05] MEDS: Escitalopram Oxalate 20 mg Tablet PO SCH (11:03)
[2022-12-05] MEDS: SODIUM ACETATE IV SCH (15:12)
[2022-12-05] MEDS: [UNRECOGNIZED DRUG - OTHER] IV SCH (15:12)
[2022-12-05] MEDS: MULTIVITAMINS IV SCH (15:12)
[2022-12-05] MEDS: MAGNESIUM SULFATE IV SCH (15:12)
[2022-12-05] MEDS: Albuterol 200 PUFF (6.7GM INHALER) INH PRN (19:48)
[2022-12-06] MEDS: Meropenem 1 GM in Sodium Chloride 0.9% 100 ML IVPB SCH ×4 (00:12→22:27)
[2022-12-06] MEDS: Lorazepam 2 MG/ML VIAL SLOW IVP PRN ×3 (00:17→20:32)
[2022-12-06] MEDS: Acetaminophen 500 MG TAB PO SCH ×5 (01:12→23:04)
[2022-12-06] MEDS: Zolpidem Tartrate 5 MG TAB PO PRN ×2 (01:23→22:58)
[2022-12-06] MEDS: Ketorolac Tromethamine 30 MG/ML VIAL IVP SCH ×4 (03:04→20:31)
[2022-12-06 06:05] LABS: Anion Gap 11 mmol/L (10-20); BUN (Urea Nitrogen) 24 mg/dL (8.9-20.6); Calc. Creatinine Clearance 102 mL/min (70-130); Calcium 9.4 mg/dL (7.8-10.44); Carbon Dioxide 27 mmol/L (22-29); Chloride 102 mmol/L (98-107); Estimated GFR 110; Glucose 128 mg/dL (70-105); Magnesium 2.3 mg/dL (1.6-2.6); Potassium 4.5 mmol/L (3.5-5.1); Sodium 135 mmol/L (136-145)
[2022-12-06 06:08] LABS: Anisocytosis SLIGHT = 6-15 cells (100X) (0-5/hpf); Band 1 % (5-11); Eosinophils 2 % (0-10); Hemoglobin 8.3 g/dL (14.0-18.0); Lymphocytes 19 % (21-51); MDiff Complete? YES; Macrocytosis SLIGHT = 6-15 cells (100X) (0-5/hpf); Mean Corpuscular HGB CONC 34.5 g/dL (32.0-36.0); Mean Corpuscular Hemoglobin 34.9 pg (27.0-31.0); Monocytes 2 % (0-10); Neutrophil 76 % (42-75); Ovalocytes SLIGHT = 2-5 cells (100X) (0-1/hpf); Platelet Count 737 10x3/uL (130-400); Platelet Morphology Comment Appears Increased; RBC Distribution Width 15.3 % (11.5-14.5); Red Blood Cell (RBC) Count 2.39 mill/uL (4.70-6.10); White Blood Cell (WBC) Count 17.7 10x3/uL (4.8-10.8)
[2022-12-06] MEDS ORDERED: Sodium Chloride 0.9% 1,000 ML IV SCH (07:45)
[2022-12-06] MEDS: Losartan 25 MG TAB PO SCH (08:26)
[2022-12-06] MEDS: guaiFENesin ER 600 MG TAB PO SCH ×2 (08:26→22:51)
[2022-12-06] MEDS: Benzonatate 100 MG CAP PO SCH ×3 (08:26→20:32)
[2022-12-06] MEDS: Famotidine/PF 20 mg/2ml Vial SLOW IVP SCH ×2 (08:27→20:31)
[2022-12-06] MEDS: busPIRone HCl 5 MG TAB PO SCH ×2 (08:27→20:32)
[2022-12-06] MEDS: Gabapentin 300 MG CAP PO SCH ×3 (08:28→20:32)
[2022-12-06] MEDS: Escitalopram Oxalate 20 mg Tablet PO SCH (08:46)
[2022-12-06] MEDS: SODIUM ACETATE IV SCH (14:47)
[2022-12-06] MEDS: MULTIVITAMINS IV SCH (14:47)
[2022-12-06] MEDS: [UNRECOGNIZED DRUG - OTHER] IV SCH (14:47)
[2022-12-06] MEDS: MAGNESIUM SULFATE IV SCH (14:47)
[2022-12-06] MEDS: hydrALAZINE 20 MG/ML VIAL SLOW IVP PRN (16:06)
[2022-12-06] MEDS: diphenhydrAMINE 50 MG/ML VIAL IVP PRN (22:27)
[2022-12-07] MEDS: Lorazepam 2 MG/ML VIAL SLOW IVP PRN ×3 (01:12→20:55)
[2022-12-07] MEDS: Ketorolac Tromethamine 30 MG/ML VIAL IVP SCH ×4 (03:07→20:54)
[2022-12-07] MEDS: HYDROmorphone 10 mg/100 ml CADD IVPB PRN (04:08)
[2022-12-07 04:20] LABS: Hemoglobin 8.2 g/dL (14.0-18.0); Mean Corpuscular HGB CONC 33.7 g/dL (32.0-36.0); Mean Corpuscular Hemoglobin 34.5 pg (27.0-31.0); Mean Platelet Volume 5.9 fL (7.4-10.4); Platelet Count 712 10x3/uL (130-400); RBC Distribution Width 15.7 % (11.5-14.5); Red Blood Cell (RBC) Count 2.38 mill/uL (4.70-6.10); White Blood Cell (WBC) Count 13.8 10x3/uL (4.8-10.8)
[2022-12-07 04:36] LABS: Anion Gap 14 mmol/L (10-20); BUN (Urea Nitrogen) 31 mg/dL (8.9-20.6); Calc. Creatinine Clearance 95 mL/min (70-130); Calcium 9.4 mg/dL (7.8-10.44); Carbon Dioxide 24 mmol/L (22-29); Chloride 103 mmol/L (98-107); Estimated GFR 108; Glucose 103 mg/dL (70-105); Magnesium 2.1 mg/dL (1.6-2.6); Potassium 4.5 mmol/L (3.5-5.1); Sodium 136 mmol/L (136-145)
[2022-12-07 05:09] LABS: Band 6 % (5-11); Eosinophils 5 % (0-10); Lymphocytes 19 % (21-51); MDiff Complete? YES; Metamyelocyte 1 % (0-0); Monocytes 4 % (0-10); Myelocyte 4 % (0-0); Neutrophil 61 % (42-75); Toxic Granulation SLIGHT
[2022-12-07] MEDS: Acetaminophen 500 MG TAB PO SCH ×3 (05:32→18:23)
[2022-12-07] MEDS: diphenhydrAMINE 50 MG/ML VIAL IVP PRN ×2 (10:15→17:40)
[2022-12-07] MEDS: Losartan 25 MG TAB PO SCH (10:17)
[2022-12-07] MEDS: Famotidine/PF 20 mg/2ml Vial SLOW IVP SCH (10:18)
[2022-12-07] MEDS: busPIRone HCl 5 MG TAB PO SCH ×2 (10:19→20:58)
[2022-12-07] MEDS: Benzonatate 100 MG CAP PO SCH ×4 (10:19→20:54)
[2022-12-07] MEDS: Meropenem 1 GM in Sodium Chloride 0.9% 100 ML IVPB SCH ×2 (10:23→18:22)
[2022-12-07] MEDS: guaiFENesin ER 600 MG TAB PO SCH ×2 (12:43→20:58)
[2022-12-07] MEDS: Escitalopram Oxalate 20 mg Tablet PO SCH (12:43)
[2022-12-07] MEDS: Gabapentin 300 MG CAP PO SCH ×3 (12:43→20:58)
[2022-12-07] MEDS ORDERED: Pantoprazole 40 MG VIAL IVP SCH (12:45)
[2022-12-07] MEDS: [UNRECOGNIZED DRUG - OTHER] IV SCH (15:02)
[2022-12-07] MEDS: MAGNESIUM SULFATE IV SCH (15:02)
[2022-12-07] MEDS: SODIUM ACETATE IV SCH (15:02)
[2022-12-07] MEDS: MULTIVITAMINS IV SCH (15:02)
[2022-12-08] MEDS: Zolpidem Tartrate 5 MG TAB PO PRN (00:25)
[2022-12-08] MEDS: Acetaminophen 500 MG TAB PO SCH ×2 (01:15→06:31)
[2022-12-08] MEDS: Meropenem 1 GM in Sodium Chloride 0.9% 100 ML IVPB SCH ×3 (01:16→18:33)
[2022-12-08] MEDS: Lorazepam 2 MG/ML VIAL SLOW IVP PRN ×2 (01:26→12:01)
[2022-12-08 06:00] LABS: Hemoglobin 8.5 g/dL (14.0-18.0); Mean Corpuscular HGB CONC 31.3 g/dL (32.0-36.0); Mean Corpuscular Hemoglobin 32.3 pg (27.0-31.0); Mean Platelet Volume 6.1 fL (7.4-10.4); Platelet Count 737 10x3/uL (130-400); RBC Distribution Width 15.7 % (11.5-14.5); Red Blood Cell (RBC) Count 2.64 mill/uL (4.70-6.10); White Blood Cell (WBC) Count 12.7 10x3/uL (4.8-10.8)
[2022-12-08 06:18] LABS: Anion Gap 12 mmol/L (10-20); BUN (Urea Nitrogen) 42 mg/dL (8.9-20.6); Calc. Creatinine Clearance 77 mL/min (70-130); Calcium 9.5 mg/dL (7.8-10.44); Carbon Dioxide 26 mmol/L (22-29); Chloride 103 mmol/L (98-107); Estimated GFR 86; Glucose 92 mg/dL (70-105); Magnesium 2.3 mg/dL (1.6-2.6); Potassium 4.7 mmol/L (3.5-5.1); Sodium 136 mmol/L (136-145)
[2022-12-08 07:54] LABS: Band 6 % (5-11); Eosinophils 6 % (0-10); Lymphocytes 14 % (21-51); MDiff Complete? YES; Monocytes 10 % (0-10); Myelocyte 3 % (0-0); Neutrophil 61 % (42-75); Platelet Morphology Comment Appears Increased; Polychromasia SLIGHT = 2-3 cells (100X) (0-2/hpf)
[2022-12-08] MEDS: Pantoprazole 40 MG VIAL IVP SCH (09:22)
[2022-12-08] MEDS: Escitalopram Oxalate 20 mg Tablet PO SCH (09:23)
[2022-12-08] MEDS: busPIRone HCl 5 MG TAB PO SCH ×2 (09:23→21:15)
[2022-12-08] MEDS: Losartan 25 MG TAB PO SCH (09:23)
[2022-12-08] MEDS: Gabapentin 300 MG CAP PO SCH ×3 (09:24→21:55)
[2022-12-08] MEDS: Benzonatate 100 MG CAP PO SCH ×3 (09:24→21:13)
[2022-12-08] MEDS: guaiFENesin ER 600 MG TAB PO SCH ×2 (09:24→21:55)
[2022-12-08] MEDS ORDERED: oxyCODONE 5 MG TAB PO PRN (09:25)
[2022-12-08] MEDS ORDERED: fentaNYL 50 mcg/mL 1 mL Vial SLOW IVP PRN (09:26)
[2022-12-08] MEDS: Acetaminophen 325 MG TAB PO SCH ×3 (10:30→21:55)
[2022-12-08] MEDS: MULTIVITAMINS IV SCH (14:40)
[2022-12-08] MEDS: MAGNESIUM SULFATE IV SCH (14:40)
[2022-12-08] MEDS: [UNRECOGNIZED DRUG - OTHER] IV SCH (14:40)
[2022-12-08] MEDS: SODIUM ACETATE IV SCH (14:40)
[2022-12-08] MEDS: oxyCODONE 5 MG TAB PO PRN (21:22)
[2022-12-09] MEDS: Zolpidem Tartrate 5 MG TAB PO PRN (00:20)
[2022-12-09] MEDS: Meropenem 1 GM in Sodium Chloride 0.9% 100 ML IVPB SCH ×3 (01:29→17:15)
[2022-12-09] MEDS: Lorazepam 2 MG/ML VIAL SLOW IVP PRN ×2 (01:29→22:16)
[2022-12-09] MEDS: Acetaminophen 325 MG TAB PO SCH ×4 (03:20→22:12)
[2022-12-09] MEDS: oxyCODONE 5 MG TAB PO PRN (03:40)
[2022-12-09 06:40] LABS: Hemoglobin 9.4 g/dL (14.0-18.0); Mean Corpuscular HGB CONC 34.3 g/dL (32.0-36.0); Mean Corpuscular Hemoglobin 34.9 pg (27.0-31.0); Mean Platelet Volume 6.1 fL (7.4-10.4); Platelet Count 786 10x3/uL (130-400); RBC Distribution Width 15.5 % (11.5-14.5); White Blood Cell (WBC) Count 16.1 10x3/uL (4.8-10.8)
[2022-12-09 07:03] LABS: ALT (SGPT) 104 U/L (8-55); AST (SGOT) 40 U/L (5-34); Albumin 3.5 g/dL (3.5-5.0); Alkaline Phosphatase 290 U/L (40-110); Anion Gap 15 mmol/L (10-20); BUN (Urea Nitrogen) 41 mg/dL (8.9-20.6); Bilirubin, Total 0.4 mg/dL (0.2-1.2); Calc. Creatinine Clearance 90 mL/min (70-130); Calcium 10.2 mg/dL (7.8-10.44); Carbon Dioxide 25 mmol/L (22-29); Chloride 101 mmol/L (98-107); Estimated GFR 104; Globulin 4.4 g/dL (2.4-3.5); Glucose 89 mg/dL (70-105); Potassium 4.7 mmol/L (3.5-5.1); Protein, Total 7.9 g/dL (6.0-8.3); Sodium 136 mmol/L (136-145)
[2022-12-09 07:19] LABS: MDiff Complete? YES
[2022-12-09 07:20] LABS: Band 3 % (5-11); Eosinophils 1 % (0-10); Lymphocytes 19 % (21-51); Macrocytosis SLIGHT = 6-15 cells (100X) (0-5/hpf); Metamyelocyte 3 % (0-0); Monocytes 9 % (0-10); Myelocyte 3 % (0-0); Neutrophil 59 % (42-75); Platelet Morphology Comment Appears Increased; Reactive Lymphocytes 2 % (0-10)
[2022-12-09] MEDS: Pantoprazole 40 MG VIAL IVP SCH (08:49)
[2022-12-09] MEDS: Gabapentin 300 MG CAP PO SCH ×3 (08:51→20:07)
[2022-12-09] MEDS: Escitalopram Oxalate 20 mg Tablet PO SCH (08:52)
[2022-12-09] MEDS: busPIRone HCl 5 MG TAB PO SCH ×2 (08:52→20:08)
[2022-12-09] MEDS: Benzonatate 100 MG CAP PO SCH ×3 (08:52→20:07)
[2022-12-09] MEDS: guaiFENesin ER 600 MG TAB PO SCH ×3 (08:53→22:10)
[2022-12-09] MEDS: Losartan 25 MG TAB PO SCH (08:53)
[2022-12-09] MEDS: [UNRECOGNIZED DRUG - OTHER] IV SCH (14:17)
[2022-12-09] MEDS: SODIUM ACETATE IV SCH (14:17)
[2022-12-09] MEDS: MULTIVITAMINS IV SCH (14:17)
[2022-12-09] MEDS: MAGNESIUM SULFATE IV SCH (14:17)
[2022-12-10] MEDS: Meropenem 1 GM in Sodium Chloride 0.9% 100 ML IVPB SCH ×3 (01:29→18:01)
[2022-12-10] MEDS: Zolpidem Tartrate 5 MG TAB PO PRN (01:29)
[2022-12-10] MEDS: Baclofen 10 MG TAB PO PRN (05:55)
[2022-12-10] MEDS: Acetaminophen 325 MG TAB PO SCH ×4 (06:39→23:33)
[2022-12-10] MEDS: Gabapentin 300 MG CAP PO SCH ×3 (08:35→20:56)
[2022-12-10] MEDS: Losartan 25 MG TAB PO SCH (08:36)
[2022-12-10] MEDS: busPIRone HCl 5 MG TAB PO SCH ×2 (08:36→20:57)
[2022-12-10] MEDS: Escitalopram Oxalate 20 mg Tablet PO SCH (08:36)
[2022-12-10] MEDS: Pantoprazole 40 MG VIAL IVP SCH (08:37)
[2022-12-10 09:25] LABS: Band 2 % (5-11); Eosinophils 3 % (0-10); Lymphocytes 17 % (21-51); MDiff Complete? YES; Macrocytosis SLIGHT = 6-15 cells (100X) (0-5/hpf); Mean Corpuscular HGB CONC 32.5 g/dL (32.0-36.0); Mean Corpuscular Hemoglobin 33.5 pg (27.0-31.0); Mean Platelet Volume 6.2 fL (7.4-10.4); Monocytes 8 % (0-10); Neutrophil 67 % (42-75); Platelet Count 718 10x3/uL (130-400); Platelet Morphology Comment Appears Increased; RBC Distribution Width 15.3 % (11.5-14.5); Reactive Lymphocytes 3 % (0-10); Red Blood Cell (RBC) Count 2.68 mill/uL (4.70-6.10); White Blood Cell (WBC) Count 11.5 10x3/uL (4.8-10.8)
[2022-12-10] MEDS: guaiFENesin ER 600 MG TAB PO SCH ×3 (10:35→20:56)
[2022-12-10] MEDS: Benzonatate 100 MG CAP PO SCH ×3 (10:35→20:59)
[2022-12-10] MEDS: MULTIVITAMINS IV SCH (15:07)
[2022-12-10] MEDS: [UNRECOGNIZED DRUG - OTHER] IV SCH (15:07)
[2022-12-10] MEDS: MAGNESIUM SULFATE IV SCH (15:07)
[2022-12-10] MEDS: SODIUM ACETATE IV SCH (15:07)
[2022-12-10] MEDS: Lorazepam 2 MG/ML VIAL SLOW IVP PRN (22:19)
[2022-12-11] MEDS: Zolpidem Tartrate 5 MG TAB PO PRN ×2 (00:05→22:56)
[2022-12-11] MEDS: Meropenem 1 GM in Sodium Chloride 0.9% 100 ML IVPB SCH ×3 (02:55→18:05)
[2022-12-11] MEDS: Acetaminophen 325 MG TAB PO SCH ×4 (05:24→21:57)
[2022-12-11] MEDS: Gabapentin 300 MG CAP PO SCH ×3 (08:33→21:57)
[2022-12-11] MEDS: Escitalopram Oxalate 20 mg Tablet PO SCH (08:34)
[2022-12-11] MEDS: busPIRone HCl 5 MG TAB PO SCH ×2 (08:34→21:57)
[2022-12-11] MEDS: Baclofen 10 MG TAB PO PRN ×2 (08:34→12:26)
[2022-12-11] MEDS: guaiFENesin ER 600 MG TAB PO SCH ×2 (08:34→20:26)
[2022-12-11] MEDS: Pantoprazole 40 MG VIAL IVP SCH (08:35)
[2022-12-11] MEDS: Benzonatate 100 MG CAP PO SCH ×3 (08:44→20:26)
[2022-12-11] MEDS: Losartan 25 MG TAB PO SCH (08:44)
[2022-12-11] MEDS: Lorazepam 2 MG/ML VIAL SLOW IVP PRN (20:26)
[2022-12-12] MEDS: Meropenem 1 GM in Sodium Chloride 0.9% 100 ML IVPB SCH (01:34)
[2022-12-12] MEDS: oxyCODONE 5 MG TAB PO PRN (02:02)
[2022-12-12] MEDS: Acetaminophen 325 MG TAB PO SCH (05:11)
[2022-12-12 05:12] VITALS: TEMP 97.7
[2022-12-12 08:04] VITALS: BP 126/90
[2022-12-12] MEDS: guaiFENesin ER 600 MG TAB PO SCH (08:53)
[2022-12-12] MEDS: Gabapentin 300 MG CAP PO SCH (08:54)
[2022-12-12] MEDS: busPIRone HCl 5 MG TAB PO SCH (08:55)
[2022-12-12] MEDS: Losartan 25 MG TAB PO SCH (08:55)
[2022-12-12] MEDS: Benzonatate 100 MG CAP PO SCH (08:55)
[2022-12-12] MEDS: Escitalopram Oxalate 20 mg Tablet PO SCH (08:55)
[2022-12-12] MEDS: Pantoprazole 40 MG VIAL IVP SCH (08:56)
== END 2022-12-12 10:15 | disposition home or self-care (01) | DRG 853 ==
LOC: SURG A 06:35
PROVIDERS: ADMIT Surgery; ATTEND Surgery
PROC: 0DTG0ZZ Resection of Left Large Intestine, Open Approach (ICD-10-PCS; principal; 2022-11-22)
PROC: 0DB80ZZ Excision of Small Intestine, Open Approach (ICD-10-PCS; 2022-11-22)
PROC: 0D1B0Z4 Bypass Ileum to Cutaneous, Open Approach (ICD-10-PCS; 2022-11-22)
PROC: 02HV33Z Insertion of Infusion Device into Superior Vena Cava, Percutaneous Approach (ICD-10-PCS; 2022-11-22)
PROC: 0D9770Z Drainage of Stomach, Pylorus with Drainage Device, Via Natural or Artificial Opening (ICD-10-PCS; 2022-11-22)
PROC: 3E03329 Introduction of Other Anti-infective into Peripheral Vein, Percutaneous Approach (ICD-10-PCS; 2022-11-22)
PROC: 0DQ80ZZ Repair Small Intestine, Open Approach (ICD-10-PCS; 2022-11-28)
PROC: 0DB80ZZ Excision of Small Intestine, Open Approach (ICD-10-PCS; 2022-11-28)
DX: A41.9 Sepsis, unspecified organism (principal); J18.9 Pneumonia, unspecified organism; K65.1 Peritoneal abscess; K57.20 Diverticulitis of large intestine with perforation and abscess without bleeding; K63.2 Fistula of intestine; K56.7 Ileus, unspecified; I50.32 Chronic diastolic (congestive) heart failure; I69.154 Hemiplegia and hemiparesis following nontraumatic intracerebral hemorrhage affecting left non-dominant side; E87.6 Hypokalemia; F10.20 Alcohol dependence, uncomplicated; F32.A Depression, unspecified; I11.0 Hypertensive heart disease with heart failure; E86.9 Volume depletion, unspecified; D64.9 Anemia, unspecified; E83.42 Hypomagnesemia; Z79.899 Other long term (current) drug therapy
CPT/HCPCS: 36415; 36416; 71045; 74018; 74177; 80048; 80053; 80076; 80202; 81001; 83605; 83690; 83735; 84100; 85025; 86850; 86900; 86901; 87040; 87070; 87081; 87205; 87449; 87899; 88307; 93005; 93010; 97139; A4649; C1751; C1776; C9113; J0360; J0694; J1100; J1170; J1200; J1650; J1815; J1885; J2060; J2185; J2250; J2370; J2405; J2543; J2550; J2704; J2765; J2997; J3010; J3230; J3370; J3370-JW; J3475; J3480; J3490; J7030; J7050; J7620; S0028

== ENCOUNTER 2023-02-15 13:05 | Outpatient (CLI) | payer OTHER | END 2023-02-15 13:06 | disposition home or self-care (01) | PROVIDERS: ATTEND Psychiatry & Neurology Neurology | DX: I61.2 Nontraumatic intracerebral hemorrhage in hemisphere, unspecified (principal) | CPT/HCPCS: 93225; 93226 ==

== ENCOUNTER 2023-03-23 13:38 | Outpatient (CLI) | payer OTHER | END 2023-03-23 13:39 | disposition home or self-care (01) | LOC: RAD 13:38 | PROVIDERS: ATTEND Student in an Organized Health Care Education/Training Program | DX: M25.512 Pain in left shoulder (principal) ==